=== PATIENT | female | born 1950 | race African-American/Black ===

== ENCOUNTER 2020-06-02 13:07 | Inpatient (IN) | payer MEDICARE, MEDICAID ==
[~2020-06-02] VITALS: Ht 165.1 cm; Wt 75.7 kg
[~2020-06-02 13:07] MED LIST: ACET-3161 GT; AMLO10TA80 PO; CARV3.1242 PO; CLON0.3T PO; HYDR-2510 PO; LEVO25TA7 PO; METF-414 PO; POTA10TA20 PO; SIMV-43 PO; VALS320T2 PO
[2020-06-02] MEDS ORDERED: LORAZEPAM 2MG/ML CPJ IV ONE (14:15)
[2020-06-02 14:21] LABS: EOSINOPHILS % 6.3 % (0.0-5.0); HEMATOCRIT. 40.5 % (36.0-48.0); HEMOGLOBIN. 13.5 g/dL (12.0-16.0); MEAN CORPUSCULAR HEMOGLOBIN 27.8 pg (28.0-32.0); MEAN CORPUSCULAR VOLUME 83.3 fL (81.0-99.0); MEAN PLATELET VOLUME 8.8 fl (7.4-10.4); MONOCYTES % 7.4 % (2.0-8.0); NEUTROPHILS % 44.3 % (40.0-76.0); PLATELET 182 x1000/uL (130-400); RED BLOOD CELL COUNT 4.87 mill/uL (4.2-5.4); RED CELL DISTRIBUTION WIDTH 13.9 % (11.6-14.6)
[2020-06-02 14:26] LABS: CHLORIDE 105 mEq/L (98-107)
[2020-06-02 14:32] LABS: ETHANOL BLOOD < 10 mg/dL
[2020-06-02 14:35] LABS: CREATINE KINASE 179 IU/L (26-192)
[2020-06-02] MEDS ORDERED: DEXAMETHASONE 4MG/ML 1ML VIAL IV SCH (14:45)
[2020-06-02 15:44] LABS: CLARITY URINE CLEAR (CLEAR); COLOR URINE YELLOW (YELLOW); KETONES URINE NEGATIVE (NEGATIVE); LEUKOCYTE ESTERASE URINE NEGATIVE (NEGATIVE); NITRITE URINE NEGATIVE (NEGATIVE); OCCULT BLOOD URINE NEGATIVE (NEGATIVE); PROTEIN URINE TRACE (NEGATIVE); SPECIFIC GRAVITY URINE 1.016 (1.005-1.030); UROBILINOGEN URINE 0.2 E.U./dL (0.2-1.0)
[2020-06-02] MEDS ORDERED: DEXTROSE 50% WATER 50ML SYRINGE IV PRN (15:45)
[2020-06-02 15:56] LABS: *AMPHETAMINES SCREEN URINE NEGATIVE (NEGATIVE); *BARBITURATES SCREEN URINE NEGATIVE (NEGATIVE); *BENZODIAZEPINES SCREEN URINE NEGATIVE (NEGATIVE); *COCAINE SCREEN URINE NEGATIVE (NEGATIVE)
[2020-06-02 15:57] LABS: CANNABINOID URINE SCREEN NEGATIVE (NEGATIVE); METHADONE URINE SCREEN NEGATIVE (NEGATIVE); OPIATES URINE SCREEN NEGATIVE (NEGATIVE); PHENCYCLIDINE URINE SCREEN NEGATIVE (NEGATIVE)
[2020-06-02 16:14] LABS: BG BASE EXCESS -6.3 mmol/L (-2.0-2.0); BG CARBOXYHEMOGLOBIN 0.4 % (0.5-1.5); BG DEOXYHEMOGLOBIN 0.5 % (0.0-5.0); BG METHEMOGLOBIN 0.5 % (0.0-1.5); BG OXYGEN SATURATION 99.5 % (92.0-98.5); BG OXYHEMOGLOBIN 98.6 % (94.0-97.0); BG PCO2 129.7 mmHg (35.0-45.0); BG PH 6.967 (7.350-7.450); BG PO2 412.7 mmHg (75.0-100.0); BG SAMPLE SITE RIGHT RADIAL; BG TOTAL HEMOGLOBIN 14.1 g/dL (12.0-18.0); BG VENT MODE MASK - NRB
[2020-06-02] MEDS: DEXT 5%/LACTATED RINGERS 1,000 ML IV SCH (16:22)
[2020-06-02] MEDS ORDERED: FENTANYL CITRATE/PF 50MCG/ML 2ML VIAL IV ONE (16:45)
[2020-06-02] MEDS ORDERED: SUCCINYLCHOLINE CHLORIDE 200MG/10ML IV ONE ×2 (16:45)
[2020-06-02] MEDS ORDERED: ETOMIDATE 2MG/ML 10ML VIAL IV ONE ×2 (16:45)
[2020-06-02] MEDS ORDERED: POTASSIUM CHLORIDE INJ 40 MEQ in DEXT 5% WATER 250 ML IV NR (17:00)
[2020-06-02] MEDS ORDERED: FENTANYL CITRATE/PF 500 MCG in SODIUM CHLORIDE 0.9% 40 ML IV PRN (17:00)
[2020-06-02] MEDS ORDERED: BLOOD SUGAR DIAGNOSTIC STRIP TEST SCH (17:00)
[2020-06-02] MEDS ORDERED: FENTANYL CITRATE/PF 1,000 MCG in SODIUM CHLORIDE 0.9% 100 ML IV PRN (17:15)
[2020-06-02 17:32] LABS: BG BASE EXCESS -3.7 mmol/L (-2.0-2.0); BG CARBOXYHEMOGLOBIN 0.3 % (0.5-1.5); BG DEOXYHEMOGLOBIN 3.1 % (0.0-5.0); BG FRACTION INSPIRED OXYGEN 50; BG HCO3 ACT 23.6 mmol/L (22.0-26.0); BG METHEMOGLOBIN 0.3 % (0.0-1.5); BG OXYGEN SATURATION 96.9 % (92.0-98.5); BG OXYHEMOGLOBIN 96.3 % (94.0-97.0); BG PCO2 51.8 mmHg (35.0-45.0); BG PH 7.277 (7.350-7.450); BG PO2 100.1 mmHg (75.0-100.0); BG SAMPLE SITE RIGHT BRACHIAL; BG TOTAL HEMOGLOBIN 13.6 g/dL (12.0-18.0); BG TOTAL RESPIRATORY RATE 20 b/min; BG VENT MODE VENT - AC
[2020-06-02] MEDS ORDERED: PROPOFOL 10MG/ML 100ML 100 ML IV SCH (17:45)
[2020-06-02] MEDS ORDERED: LEVETIRACETAM 500 MG in SODIUM CHLORIDE 0.9% 100 ML IV SCH (18:00)
[2020-06-02] MEDS ORDERED: LEVETIRACETAM 500MG PREMIX 100 ML IV SCH (18:00)
[2020-06-02] MEDS: INSULIN LISPRO 100 UNITS/ML SUBCUT SCH (18:16)
[2020-06-02] MEDS: IPRATROPIUM/ALBUTEROL 0.5-3(2.5)MG/3ML NEB HHN SCH (22:15)
[2020-06-03] VITALS (83 sets, daily range): BP systolic 94–181; BP diastolic 24–105
[2020-06-03] MEDS ORDERED: DEXAMETHASONE 4MG/ML 1ML VIAL IV SCH
[2020-06-03] MEDS: IPRATROPIUM/ALBUTEROL 0.5-3(2.5)MG/3ML NEB HHN SCH ×3 (02:06→21:39)
[2020-06-03] MEDS: NICARDIPINE 100 MG in SODIUM CHLORIDE 0.9% 60 ML IV PRN ×2 (02:30→11:38)
[2020-06-03] MEDS: PROPOFOL 10MG/ML 100ML 100 ML IV PRN ×4 (04:10→22:41)
[2020-06-03] MEDS: FENTANYL CITRATE/PF 1,000 MCG in SODIUM CHLORIDE 0.9% 80 ML IV PRN ×3 (04:20→16:40)
[2020-06-03] MEDS: BLOOD SUGAR DIAGNOSTIC STRIP TEST SCH ×4 (05:43→20:18)
[2020-06-03] MEDS: DEXAMETHASONE 4MG/ML 1ML VIAL IV SCH ×3 (05:50→19:19)
[2020-06-03 05:51] LABS: CHLORIDE 101 mEq/L (98-107)
[2020-06-03] MEDS: INSULIN LISPRO 100 UNITS/ML SUBCUT SCH ×4 (05:51→20:19)
[2020-06-03 05:54] LABS: BASOPHILS % 0.1 % (0.0-2.0); HEMATOCRIT. 41.5 % (36.0-48.0); HEMOGLOBIN. 13.8 g/dL (12.0-16.0); LYMPHOCYTES % 8.9 % (20.0-50.0); MEAN CORPUSCULAR HEMOGLOBIN 27.7 pg (28.0-32.0); MEAN CORPUSCULAR VOLUME 83.3 fL (81.0-99.0); MEAN PLATELET VOLUME 8.1 fl (7.4-10.4); MONOCYTES % 5.2 % (2.0-8.0); NEUTROPHILS % 85.8 % (40.0-76.0); PLATELET 189 x1000/uL (130-400); RED BLOOD CELL COUNT 4.98 mill/uL (4.2-5.4); RED CELL DISTRIBUTION WIDTH 13.8 % (11.6-14.6)
[2020-06-03] MEDS: LEVETIRACETAM 500MG PREMIX 100 ML IV SCH ×2 (08:17→20:19)
[2020-06-03] MEDS: PANTOPRAZOLE SODIUM 40 MG/VIAL IV SCH (08:25)
[2020-06-03 08:52] LABS: BG BASE EXCESS 2.6 mmol/L (-2.0-2.0); BG CARBOXYHEMOGLOBIN 0.3 % (0.5-1.5); BG FRACTION INSPIRED OXYGEN 50; BG HCO3 ACT 25.7 mmol/L (22.0-26.0); BG METHEMOGLOBIN 0.3 % (0.0-1.5); BG OXYHEMOGLOBIN 97.4 % (94.0-97.0); BG PH 7.484 (7.350-7.450); BG PO2 99.3 mmHg (75.0-100.0); BG SAMPLE SITE RIGHT RADIAL; BG TOTAL HEMOGLOBIN 13.6 g/dL (12.0-18.0); BG VENT MODE VENT - AC
[2020-06-03] MEDS ORDERED: GADOBENATE DIMEGLUMINE 529 MG/ML 10ML IV ONE (10:30)
[2020-06-03] MEDS ORDERED: BACITRACIN 15GM TUBE TOP ONE (10:48)
[2020-06-03] MEDS ORDERED: THROMBIN (BOVINE) 5000 UNITS/VIAL TOP ONE ×3 (10:49→13:01)
[2020-06-03] MEDS ORDERED: BACITRACIN 50,000 UNITS/VIAL ONE (10:49)
[2020-06-03] MEDS ORDERED: SODIUM CHLORIDE 0.9% INJ 10ML FLUSH ONE (10:49)
[2020-06-03] MEDS ORDERED: POTASSIUM CHLORIDE INJ 40 MEQ in DEXT 5% WATER 250 ML IV SCH (12:00)
[2020-06-03] MEDS ORDERED: PROPOFOL 200MG/20ML VIAL IV ONE ×2 (12:00→12:43)
[2020-06-03] MEDS ORDERED: FENTANYL CITRATE/PF 50MCG/ML 2ML VIAL ONE ×2 (12:00→12:48)
[2020-06-03] MEDS ORDERED: MIDAZOLAM HCL 2 MG/2 ML VIAL ONE (12:00)
[2020-06-03] MEDS ORDERED: ONDANSETRON HCL 4MG/2ML INJ ONE (12:07)
[2020-06-03] MEDS ORDERED: DEXAMETHASONE 4MG/ML 1ML VIAL ONE (12:07)
[2020-06-03] MEDS ORDERED: MANNITOL 20% 500 ML IV ONE (12:14)
[2020-06-03] MEDS ORDERED: HYDROMORPHONE HCL/PF 2MG/ML (OR) ONE ×2 (13:47→14:12)
[2020-06-03] MEDS ORDERED: GLYCOPYRROLATE 0.2 MG/ML 2ML VIAL ONE (13:48)
[2020-06-03] MEDS: MORPHINE SULFATE 4 MG/ML CPJ (NOT FOR IM USE) IV PRN (15:21)
[2020-06-03] MEDS: DEXT 5%/LACTATED RINGERS 1,000 ML IV SCH (16:01)
[2020-06-03] MEDS: PIPERACILLIN/TAZOBACTAM 3.375 G in DEXT 5% WATER 100 ML IV SCH ×2 (16:08→20:18)
[2020-06-03] MEDS: CEFAZOLIN 1000MG PREMIX 50 ML IV SCH (20:18)
[2020-06-03 21:15] LABS: PROTHROMBIN TIME 10.7 sec (9.6-11.0)
[2020-06-03] MEDS ORDERED: CEFAZOLIN SODIUM 1000MG/VIAL IV SCH (22:00)
[2020-06-03] MEDS: NITROPRUSSIDE 50 MG in SODIUM CHLORIDE 0.9% 248 ML IV PRN (22:40)
[2020-06-04] VITALS (93 sets, daily range): BP systolic 44–186; BP diastolic 31–153
[2020-06-04] MEDS: DEXAMETHASONE 4MG/ML 1ML VIAL IV SCH ×5 (00:21→23:51)
[2020-06-04] MEDS: FENTANYL CITRATE/PF 1,000 MCG in SODIUM CHLORIDE 0.9% 80 ML IV PRN ×3 (00:25→16:24)
[2020-06-04] MEDS: PIPERACILLIN/TAZOBACTAM 3.375 G in DEXT 5% WATER 100 ML IV SCH ×4 (02:02→19:51)
[2020-06-04] MEDS: IPRATROPIUM/ALBUTEROL 0.5-3(2.5)MG/3ML NEB HHN SCH (02:21)
[2020-06-04] MEDS: CEFAZOLIN 1000MG PREMIX 50 ML IV SCH ×3 (03:03→19:51)
[2020-06-04] MEDS ORDERED: ADENOSINE 3 MG/ML 2ML VIAL IV NR ×2 (04:15→04:30)
[2020-06-04] MEDS ORDERED: AMIODARONE HCL 150 MG in DEXT 5% WATER 100 ML IV NR (05:30)
[2020-06-04] MEDS: BLOOD SUGAR DIAGNOSTIC STRIP TEST SCH ×4 (05:36→21:11)
[2020-06-04] MEDS: PROPOFOL 10MG/ML 100ML 100 ML IV PRN ×3 (05:37→22:49)
[2020-06-04] MEDS: INSULIN LISPRO 100 UNITS/ML SUBCUT SCH ×4 (05:47→21:09)
[2020-06-04 05:49] LABS: HEMATOCRIT. 35.8 % (36.0-48.0); MEAN CORPUSCULAR HEMOGLOBIN 27.5 pg (28.0-32.0); MEAN PLATELET VOLUME 8.4 fl (7.4-10.4); PLATELET 226 x1000/uL (130-400); RED BLOOD CELL COUNT 4.37 mill/uL (4.2-5.4); RED CELL DISTRIBUTION WIDTH 14.1 % (11.6-14.6)
[2020-06-04] MEDS: AMIODARONE HCL 900 MG in DEXT 5% WATER 482 ML IV PRN (06:00)
[2020-06-04 06:02] LABS: PHOSPHORUS 3.7 mg/dL (2.5-4.9)
[2020-06-04] MEDS: NITROPRUSSIDE 50 MG in SODIUM CHLORIDE 0.9% 248 ML IV PRN ×2 (07:30→22:43)
[2020-06-04 07:47] LABS: BG BASE EXCESS -2.8 mmol/L (-2.0-2.0); BG CARBOXYHEMOGLOBIN 0.3 % (0.5-1.5); BG DEOXYHEMOGLOBIN 1.6 % (0.0-5.0); BG HCO3 ACT 21.3 mmol/L (22.0-26.0); BG METHEMOGLOBIN 0.3 % (0.0-1.5); BG OXYGEN SATURATION 98.4 % (92.0-98.5); BG OXYHEMOGLOBIN 97.8 % (94.0-97.0); BG PCO2 34.9 mmHg (35.0-45.0); BG PH 7.403 (7.350-7.450); BG PO2 134.1 mmHg (75.0-100.0); BG SAMPLE SITE ALINE; BG TOTAL HEMOGLOBIN 12.8 g/dL (12.0-18.0); BG VENT MODE VENT - AC
[2020-06-04] MEDS: DEXT 5%/LACTATED RINGERS 1,000 ML IV SCH (07:57)
[2020-06-04] MEDS: LEVETIRACETAM 500MG PREMIX 100 ML IV SCH ×2 (09:01→21:08)
[2020-06-04] MEDS: PANTOPRAZOLE SODIUM 40 MG/VIAL IV SCH (09:01)
[2020-06-04] MEDS: IPRATROPIUM BROMIDE (0.02%) 0.5MG/2.5ML NEB HHN SCH ×3 (09:15→20:05)
[2020-06-04] MEDS ORDERED: IPRATROPIUM BROMIDE (0.02%) 0.5MG/2.5ML NEB ONE (09:23)
[2020-06-04] MEDS ORDERED: KCL 20MEQ/100ML PREMIX 100 ML IV SCH (10:00)
[2020-06-04] MEDS ORDERED: DILTIAZEM HCL 5MG/ML 5ML VIAL IV SCH (10:00)
[2020-06-04] MEDS: LACTATED RINGERS 1,000 ML IV SCH (11:43)
[2020-06-04] MEDS ORDERED: INSULIN GLARGINE UD 100 UNITS/ML SYR SUBCUT NR (12:30)
[2020-06-04 17:38] LABS: PLATELET ESTIMATE NORMAL
[2020-06-04] MEDS: INSULIN GLARGINE UD 100 UNITS/ML SYR SUBCUT SCH (21:11)
[2020-06-05] VITALS (96 sets, daily range): BP systolic 102–148; BP diastolic 53–86
[2020-06-05] MEDS: FENTANYL CITRATE/PF 1,000 MCG in SODIUM CHLORIDE 0.9% 80 ML IV PRN ×4 (00:39→21:03)
[2020-06-05] MEDS: IPRATROPIUM BROMIDE (0.02%) 0.5MG/2.5ML NEB HHN SCH ×4 (01:49→20:23)
[2020-06-05] MEDS: PIPERACILLIN/TAZOBACTAM 3.375 G in DEXT 5% WATER 100 ML IV SCH ×4 (02:35→19:54)
[2020-06-05] MEDS: CEFAZOLIN 1000MG PREMIX 50 ML IV SCH ×2 (03:26→12:32)
[2020-06-05] MEDS: NITROPRUSSIDE 50 MG in SODIUM CHLORIDE 0.9% 248 ML IV PRN ×2 (04:55→12:52)
[2020-06-05] MEDS: LACTATED RINGERS 1,000 ML IV SCH ×2 (04:55→23:04)
[2020-06-05] MEDS: AMIODARONE HCL 900 MG in DEXT 5% WATER 482 ML IV PRN (04:56)
[2020-06-05 05:43] LABS: CHLORIDE 104 mEq/L (98-107)
[2020-06-05] MEDS: INSULIN LISPRO 100 UNITS/ML SUBCUT SCH ×4 (05:49→20:55)
[2020-06-05] MEDS: DEXAMETHASONE 4MG/ML 1ML VIAL IV SCH ×4 (05:49→23:39)
[2020-06-05] MEDS: BLOOD SUGAR DIAGNOSTIC STRIP TEST SCH ×4 (05:49→20:54)
[2020-06-05 05:56] LABS: HEMATOCRIT. 35.3 % (36.0-48.0); HEMOGLOBIN. 11.7 g/dL (12.0-16.0); MEAN CORPUSCULAR HEMOGLOBIN 27.4 pg (28.0-32.0); MEAN CORPUSCULAR VOLUME 82.6 fL (81.0-99.0); MEAN PLATELET VOLUME 8.4 fl (7.4-10.4); PLATELET 205 x1000/uL (130-400); RED BLOOD CELL COUNT 4.28 mill/uL (4.2-5.4)
[2020-06-05 07:52] LABS: PLATELET ESTIMATE NORMAL
[2020-06-05] MEDS: PROPOFOL 10MG/ML 100ML 100 ML IV PRN ×4 (08:00→22:24)
[2020-06-05] MEDS: PANTOPRAZOLE SODIUM 40 MG/VIAL IV SCH (08:17)
[2020-06-05] MEDS: LEVETIRACETAM 500MG PREMIX 100 ML IV SCH (08:18)
[2020-06-05] MEDS ORDERED: DILTIAZEM HCL 30MG TABLET NG SCH (10:00)
[2020-06-05] MEDS: INSULIN GLARGINE UD 100 UNITS/ML SYR SUBCUT SCH ×2 (10:29→21:02)
[2020-06-05 10:33] LABS: BG BASE EXCESS 0.5 mmol/L (-2.0-2.0); BG DEOXYHEMOGLOBIN 3.2 % (0.0-5.0); BG HCO3 ACT 23.5 mmol/L (22.0-26.0); BG METHEMOGLOBIN 0.3 % (0.0-1.5); BG OXYGEN SATURATION 96.8 % (92.0-98.5); BG OXYHEMOGLOBIN 96.5 % (94.0-97.0); BG PCO2 32.4 mmHg (35.0-45.0); BG PH 7.479 (7.350-7.450); BG PO2 85.2 mmHg (75.0-100.0); BG SAMPLE SITE RIGHT RADIAL; BG TOTAL HEMOGLOBIN 11.2 g/dL (12.0-18.0); BG TOTAL RESPIRATORY RATE 26 b/min; BG VENT MODE VENT - AC
[2020-06-05] MEDS ORDERED: LEVETIRACETAM 500 MG in SODIUM CHLORIDE 0.9% 100 ML IV SCH (11:45)
[2020-06-05] MEDS ORDERED: LEVETIRACETAM 500MG PREMIX 100 ML IV SCH (13:00)
[2020-06-05] MEDS ORDERED: LIDOCAINE HCL 1% 20ML VIAL (Pyxis) INJ ONE (14:16)
[2020-06-05] MEDS ORDERED: NON FORMULARY PATIENT HOME MED XX SCH (15:00)
[2020-06-05] MEDS: MORPHINE SULFATE 4 MG/ML CPJ (NOT FOR IM USE) IV PRN (15:23)
[2020-06-05] MEDS: DILTIAZEM HCL 30MG TABLET NG SCH ×2 (16:19→21:01)
[2020-06-05] MEDS ORDERED: FOSPHENYTOIN SODIUM IV SCH ×2 (17:00→21:00)
[2020-06-05] MEDS ORDERED: SODIUM CHLORIDE 0.9% IV SCH ×2 (17:00→21:00)
[2020-06-05] MEDS: LEVETIRACETAM 1,000 MG in SODIUM CHLORIDE 0.9% 100 ML IV SCH (20:28)
[2020-06-06] VITALS (94 sets, daily range): BP systolic 110–144; BP diastolic 57–85
[2020-06-06] MEDS: SODIUM CHLORIDE 0.9% IV SCH ×3 (02:01→18:00)
[2020-06-06] MEDS: FOSPHENYTOIN SODIUM IV SCH ×3 (02:01→18:00)
[2020-06-06] MEDS: PROPOFOL 10MG/ML 100ML 100 ML IV PRN ×6 (02:37→22:11)
[2020-06-06] MEDS: PIPERACILLIN/TAZOBACTAM 3.375 G in DEXT 5% WATER 100 ML IV SCH ×4 (02:37→20:43)
[2020-06-06] MEDS: IPRATROPIUM BROMIDE (0.02%) 0.5MG/2.5ML NEB HHN SCH ×4 (02:43→20:27)
[2020-06-06] MEDS: FENTANYL CITRATE/PF 1,000 MCG in SODIUM CHLORIDE 0.9% 80 ML IV PRN ×4 (02:51→18:42)
[2020-06-06] MEDS: DILTIAZEM HCL 30MG TABLET NG SCH ×2 (03:00→10:24)
[2020-06-06] MEDS: DEXAMETHASONE 4MG/ML 1ML VIAL IV SCH ×4 (05:29→23:01)
[2020-06-06] MEDS: BLOOD SUGAR DIAGNOSTIC STRIP TEST SCH ×4 (05:33→23:00)
[2020-06-06 05:43] LABS: CHLORIDE 109 mEq/L (98-107)
[2020-06-06 05:48] LABS: HEMATOCRIT. 32.9 % (36.0-48.0); MEAN CORPUSCULAR HEMOGLOBIN 27.7 pg (28.0-32.0); MEAN CORPUSCULAR VOLUME 82.9 fL (81.0-99.0); MEAN PLATELET VOLUME 8.9 fl (7.4-10.4); PLATELET 161 x1000/uL (130-400); RED BLOOD CELL COUNT 3.97 mill/uL (4.2-5.4); RED CELL DISTRIBUTION WIDTH 14.3 % (11.6-14.6)
[2020-06-06] MEDS: INSULIN LISPRO 100 UNITS/ML SUBCUT SCH ×4 (06:08→23:01)
[2020-06-06] MEDS ORDERED: LORAZEPAM 2MG/ML CPJ IV NR (07:15)
[2020-06-06] MEDS ORDERED: SODIUM CHLORIDE 0.9% IV SCH (07:30)
[2020-06-06] MEDS ORDERED: FOSPHENYTOIN SODIUM IV SCH (07:30)
[2020-06-06 07:34] LABS: PLATELET ESTIMATE NORMAL
[2020-06-06] MEDS: LEVETIRACETAM 1,000 MG in SODIUM CHLORIDE 0.9% 100 ML IV SCH ×2 (09:27→21:48)
[2020-06-06] MEDS: PANTOPRAZOLE SODIUM 40 MG/VIAL IV SCH (09:27)
[2020-06-06 10:04] LABS: BG BASE EXCESS 1.2 mmol/L (-2.0-2.0); BG CARBOXYHEMOGLOBIN 0.3 % (0.5-1.5); BG DEOXYHEMOGLOBIN 1.6 % (0.0-5.0); BG FRACTION INSPIRED OXYGEN 50; BG HCO3 ACT 25.3 mmol/L (22.0-26.0); BG METHEMOGLOBIN 0.1 % (0.0-1.5); BG OXYGEN SATURATION 98.4 % (92.0-98.5); BG PCO2 38.4 mmHg (35.0-45.0); BG PH 7.437 (7.350-7.450); BG PO2 137.5 mmHg (75.0-100.0); BG SAMPLE SITE RIGHT RADIAL; BG TOTAL HEMOGLOBIN 11.9 g/dL (12.0-18.0); BG TOTAL RESPIRATORY RATE 19 b/min; BG VENT MODE VENT - AC
[2020-06-06] MEDS ORDERED: HYDRALAZINE HCL 50MG TABLET PO SCH ×2 (10:15→21:00)
[2020-06-06 10:52] LABS: BG FRACTION INSPIRED OXYGEN 50
[2020-06-06] MEDS: HYDRALAZINE HCL 50MG TABLET PO SCH ×2 (13:24→21:49)
[2020-06-06] MEDS: LACTATED RINGERS 1,000 ML IV SCH (15:55)
[2020-06-06] MEDS: DILTIAZEM HCL 60MG TABLET NG SCH ×2 (15:55→21:49)
[2020-06-06] MEDS: ZONISAMIDE 100MG CAPSULE PO SCH (18:00)
[2020-06-06] MEDS: INSULIN GLARGINE UD 100 UNITS/ML SYR SUBCUT SCH (22:53)
[2020-06-07] VITALS (93 sets, daily range): BP systolic 109–142; BP diastolic 55–79
[2020-06-07] MEDS: FOSPHENYTOIN SODIUM IV SCH ×3 (00:18→17:44)
[2020-06-07] MEDS: SODIUM CHLORIDE 0.9% IV SCH ×3 (00:18→17:44)
[2020-06-07] MEDS: FENTANYL CITRATE/PF 1,000 MCG in SODIUM CHLORIDE 0.9% 80 ML IV PRN ×3 (00:18→15:18)
[2020-06-07] MEDS: PROPOFOL 10MG/ML 100ML 100 ML IV PRN ×5 (01:31→18:56)
[2020-06-07] MEDS: PIPERACILLIN/TAZOBACTAM 3.375 G in DEXT 5% WATER 100 ML IV SCH ×4 (01:31→20:06)
[2020-06-07] MEDS: IPRATROPIUM BROMIDE (0.02%) 0.5MG/2.5ML NEB HHN SCH ×4 (02:24→20:45)
[2020-06-07] MEDS: DILTIAZEM HCL 60MG TABLET NG SCH ×4 (03:34→21:14)
[2020-06-07] MEDS: BLOOD SUGAR DIAGNOSTIC STRIP TEST SCH ×4 (05:14→23:02)
[2020-06-07 05:20] LABS: BASOPHILS % 0.1 % (0.0-2.0); HEMATOCRIT. 35.2 % (36.0-48.0); HEMOGLOBIN. 11.7 g/dL (12.0-16.0); LYMPHOCYTES % 8.9 % (20.0-50.0); MEAN CORPUSCULAR HEMOGLOBIN 27.6 pg (28.0-32.0); MEAN PLATELET VOLUME 7.7 fl (7.4-10.4); MONOCYTES % 5.3 % (2.0-8.0); NEUTROPHILS % 85.7 % (40.0-76.0); PLATELET 197 x1000/uL (130-400); RED BLOOD CELL COUNT 4.24 mill/uL (4.2-5.4); RED CELL DISTRIBUTION WIDTH 14.4 % (11.6-14.6)
[2020-06-07 05:31] LABS: CHLORIDE 110 mEq/L (98-107)
[2020-06-07] MEDS: INSULIN LISPRO 100 UNITS/ML SUBCUT SCH ×4 (05:52→23:02)
[2020-06-07] MEDS: LACTATED RINGERS 1,000 ML IV SCH ×2 (05:54→21:15)
[2020-06-07] MEDS: HYDRALAZINE HCL 50MG TABLET PO SCH ×3 (05:59→21:14)
[2020-06-07] MEDS: DEXAMETHASONE 4MG/ML 1ML VIAL IV SCH ×4 (05:59→23:05)
[2020-06-07 08:37] LABS: BG BASE EXCESS 0.6 mmol/L (-2.0-2.0); BG CARBOXYHEMOGLOBIN 0.3 % (0.5-1.5); BG DEOXYHEMOGLOBIN 4.1 % (0.0-5.0); BG HCO3 ACT 25.7 mmol/L (22.0-26.0); BG METHEMOGLOBIN 0.3 % (0.0-1.5); BG OXYGEN SATURATION 95.9 % (92.0-98.5); BG OXYHEMOGLOBIN 95.3 % (94.0-97.0); BG PH 7.394 (7.350-7.450); BG PO2 81.4 mmHg (75.0-100.0); BG SAMPLE SITE RIGHT RADIAL; BG TOTAL HEMOGLOBIN 12.1 g/dL (12.0-18.0); BG VENT MODE VENT - AC
[2020-06-07] MEDS: PANTOPRAZOLE SODIUM 40 MG/VIAL IV SCH (08:41)
[2020-06-07] MEDS: ZONISAMIDE 100MG CAPSULE PO SCH (08:41)
[2020-06-07] MEDS: LEVETIRACETAM 1,000 MG in SODIUM CHLORIDE 0.9% 100 ML IV SCH (08:41)
[2020-06-07] MEDS: INSULIN GLARGINE UD 100 UNITS/ML SYR SUBCUT SCH ×2 (10:07→23:05)
[2020-06-07] MEDS: LEVETIRACETAM 1,500 MG in SODIUM CHLORIDE 0.9% 100 ML IV SCH (21:14)
[2020-06-08] VITALS (98 sets, daily range): BP systolic 118–189; BP diastolic 55–80
[2020-06-08] MEDS: FOSPHENYTOIN SODIUM IV SCH ×3 (00:56→18:39)
[2020-06-08] MEDS: SODIUM CHLORIDE 0.9% IV SCH ×3 (00:56→18:39)
[2020-06-08] MEDS: IPRATROPIUM BROMIDE (0.02%) 0.5MG/2.5ML NEB HHN SCH ×4 (01:58→20:31)
[2020-06-08] MEDS: PIPERACILLIN/TAZOBACTAM 3.375 G in DEXT 5% WATER 100 ML IV SCH ×2 (02:14→08:56)
[2020-06-08] MEDS: DILTIAZEM HCL 60MG TABLET NG SCH ×4 (02:15→20:04)
[2020-06-08] MEDS: PROPOFOL 10MG/ML 100ML 100 ML IV PRN (02:18)
[2020-06-08] MEDS: FENTANYL CITRATE/PF 1,000 MCG in SODIUM CHLORIDE 0.9% 80 ML IV PRN ×3 (02:29→20:37)
[2020-06-08] MEDS: BLOOD SUGAR DIAGNOSTIC STRIP TEST SCH ×4 (05:11→23:58)
[2020-06-08] MEDS: INSULIN LISPRO 100 UNITS/ML SUBCUT SCH ×4 (05:11→23:58)
[2020-06-08] MEDS: HYDRALAZINE HCL 50MG TABLET PO SCH ×3 (05:26→20:05)
[2020-06-08] MEDS: DEXAMETHASONE 4MG/ML 1ML VIAL IV SCH ×4 (05:26→23:59)
[2020-06-08 05:56] LABS: HEMATOCRIT. 36.2 % (36.0-48.0); HEMOGLOBIN. 12.1 g/dL (12.0-16.0); MEAN CORPUSCULAR HEMOGLOBIN 27.8 pg (28.0-32.0); MEAN CORPUSCULAR VOLUME 83.1 fL (81.0-99.0); MEAN PLATELET VOLUME 7.7 fl (7.4-10.4); PLATELET 234 x1000/uL (130-400); RED BLOOD CELL COUNT 4.36 mill/uL (4.2-5.4); RED CELL DISTRIBUTION WIDTH 14.1 % (11.6-14.6)
[2020-06-08 06:05] LABS: CHLORIDE 107 mEq/L (98-107)
[2020-06-08] MEDS: MORPHINE SULFATE 4 MG/ML CPJ (NOT FOR IM USE) IV PRN (08:11)
[2020-06-08] MEDS: PANTOPRAZOLE SODIUM 40 MG/VIAL IV SCH (08:30)
[2020-06-08] MEDS: LEVETIRACETAM 1,500 MG in SODIUM CHLORIDE 0.9% 100 ML IV SCH ×2 (08:56→20:41)
[2020-06-08] MEDS: ZONISAMIDE 100MG CAPSULE PO SCH (08:56)
[2020-06-08 09:58] LABS: BG BASE EXCESS -1.4 mmol/L (-2.0-2.0); BG CARBOXYHEMOGLOBIN 0.8 % (0.5-1.5); BG DEOXYHEMOGLOBIN 3.7 % (0.0-5.0); BG FRACTION INSPIRED OXYGEN 50; BG HCO3 ACT 23.7 mmol/L (22.0-26.0); BG METHEMOGLOBIN 0.3 % (0.0-1.5); BG OXYGEN SATURATION 96.3 % (92.0-98.5); BG OXYHEMOGLOBIN 95.2 % (94.0-97.0); BG PCO2 41.2 mmHg (35.0-45.0); BG PH 7.378 (7.350-7.450); BG PO2 81.3 mmHg (75.0-100.0); BG SAMPLE SITE RIGHT RADIAL; BG TOTAL HEMOGLOBIN 13.1 g/dL (12.0-18.0); BG VENT MODE VENT - AC
[2020-06-08] MEDS: INSULIN GLARGINE UD 100 UNITS/ML SYR SUBCUT SCH ×2 (10:12→22:15)
[2020-06-08 11:02] LABS: NUCLEATED RED BLOOD CELLS 1 /100 WBC
[2020-06-08 11:03] LABS: PLATELET ESTIMATE NORMAL
[2020-06-08] MEDS: LACTATED RINGERS 1,000 ML IV SCH ×2 (18:53→20:29)
[2020-06-08] MEDS: MORPHINE SULFATE 2 MG/ML CPJ (NOT FOR IM USE) IV PRN (20:05)
[2020-06-08] MEDS: NITROPRUSSIDE 50 MG in SODIUM CHLORIDE 0.9% 248 ML IV PRN (21:11)
[2020-06-09] VITALS (92 sets, daily range): BP systolic 104–149; BP diastolic 54–80
[2020-06-09] MEDS: FOSPHENYTOIN SODIUM IV SCH ×4 (01:18→23:54)
[2020-06-09] MEDS: SODIUM CHLORIDE 0.9% IV SCH ×4 (01:18→23:54)
[2020-06-09] MEDS: IPRATROPIUM BROMIDE (0.02%) 0.5MG/2.5ML NEB HHN SCH ×4 (01:53→19:52)
[2020-06-09] MEDS: DILTIAZEM HCL 60MG TABLET NG SCH ×4 (03:59→21:31)
[2020-06-09 05:09] LABS: HEMATOCRIT. 35.1 % (36.0-48.0); HEMOGLOBIN. 11.6 g/dL (12.0-16.0); MEAN CORPUSCULAR HEMOGLOBIN 27.3 pg (28.0-32.0); MEAN CORPUSCULAR VOLUME 82.6 fL (81.0-99.0); MEAN PLATELET VOLUME 7.5 fl (7.4-10.4); PLATELET 247 x1000/uL (130-400); RED BLOOD CELL COUNT 4.25 mill/uL (4.2-5.4); RED CELL DISTRIBUTION WIDTH 14.2 % (11.6-14.6)
[2020-06-09] MEDS: FENTANYL CITRATE/PF 1,000 MCG in SODIUM CHLORIDE 0.9% 80 ML IV PRN ×3 (05:14→22:08)
[2020-06-09 05:15] LABS: CHLORIDE 109 mEq/L (98-107)
[2020-06-09] MEDS: INSULIN LISPRO 100 UNITS/ML SUBCUT SCH ×4 (05:34→23:55)
[2020-06-09] MEDS: BLOOD SUGAR DIAGNOSTIC STRIP TEST SCH ×4 (05:34→23:54)
[2020-06-09] MEDS: DEXAMETHASONE 4MG/ML 1ML VIAL IV SCH ×4 (06:12→23:54)
[2020-06-09] MEDS: HYDRALAZINE HCL 50MG TABLET PO SCH (06:12)
[2020-06-09] MEDS: PANTOPRAZOLE SODIUM 40 MG/VIAL IV SCH (09:00)
[2020-06-09] MEDS: ZONISAMIDE 100MG CAPSULE PO SCH (09:01)
[2020-06-09] MEDS: LEVETIRACETAM 1,500 MG in SODIUM CHLORIDE 0.9% 100 ML IV SCH ×2 (09:01→21:30)
[2020-06-09 09:27] LABS: BG BASE EXCESS 1.8 mmol/L (-2.0-2.0); BG CARBOXYHEMOGLOBIN 0.3 % (0.5-1.5); BG DEOXYHEMOGLOBIN 5.9 % (0.0-5.0); BG FRACTION INSPIRED OXYGEN 50; BG HCO3 ACT 25.5 mmol/L (22.0-26.0); BG METHEMOGLOBIN 0.3 % (0.0-1.5); BG OXYGEN SATURATION 94.1 % (92.0-98.5); BG OXYHEMOGLOBIN 93.5 % (94.0-97.0); BG PCO2 36.5 mmHg (35.0-45.0); BG PH 7.462 (7.350-7.450); BG PO2 67.4 mmHg (75.0-100.0); BG SAMPLE SITE RIGHT RADIAL; BG TOTAL HEMOGLOBIN 11.6 g/dL (12.0-18.0); BG VENT MODE VENT - AC
[2020-06-09 09:35] LABS: PLATELET ESTIMATE NORMAL
[2020-06-09] MEDS ORDERED: POTASSIUM CHLORIDE 20MEQ TABLET SR PO NR (10:15)
[2020-06-09] MEDS ORDERED: POTASSIUM CHLORIDE 20MEQ/PACKET PO NR (11:00)
[2020-06-09] MEDS: INSULIN GLARGINE UD 100 UNITS/ML SYR SUBCUT SCH ×2 (11:06→22:07)
[2020-06-09] MEDS: LOSARTAN POTASSIUM 25 MG TABLET PO SCH ×2 (12:34→21:30)
[2020-06-09] MEDS: HYDRALAZINE HCL 100MG TABLET PO SCH ×2 (13:49→21:30)
[2020-06-09] MEDS: CLONIDINE 0.1MG TABLET PO SCH ×2 (13:49→21:30)
[2020-06-09] MEDS: NITROPRUSSIDE 50 MG in SODIUM CHLORIDE 0.9% 248 ML IV PRN ×2 (13:50→22:07)
[2020-06-09] MEDS: LACTATED RINGERS 1,000 ML IV SCH (15:46)
[2020-06-10] VITALS (80 sets, daily range): BP systolic 102–158; BP diastolic 42–99
[2020-06-10] MEDS: IPRATROPIUM BROMIDE (0.02%) 0.5MG/2.5ML NEB HHN SCH ×4 (01:38→20:40)
[2020-06-10] MEDS: DILTIAZEM HCL 60MG TABLET NG SCH ×4 (03:42→20:08)
[2020-06-10] MEDS: LOSARTAN POTASSIUM 25 MG TABLET PO SCH ×3 (04:51→20:08)
[2020-06-10] MEDS: DEXAMETHASONE 4MG/ML 1ML VIAL IV SCH ×4 (04:51→23:59)
[2020-06-10] MEDS: CLONIDINE 0.1MG TABLET PO SCH (04:51)
[2020-06-10] MEDS: HYDRALAZINE HCL 100MG TABLET PO SCH ×3 (04:51→22:05)
[2020-06-10] MEDS: NITROPRUSSIDE 50 MG in SODIUM CHLORIDE 0.9% 248 ML IV PRN ×4 (05:53→20:21)
[2020-06-10] MEDS: BLOOD SUGAR DIAGNOSTIC STRIP TEST SCH ×3 (06:09→17:17)
[2020-06-10] MEDS: INSULIN LISPRO 100 UNITS/ML SUBCUT SCH ×3 (06:13→17:17)
[2020-06-10] MEDS: FENTANYL CITRATE/PF 1,000 MCG in SODIUM CHLORIDE 0.9% 80 ML IV PRN ×3 (06:19→23:27)
[2020-06-10] MEDS: PANTOPRAZOLE SODIUM 40 MG/VIAL IV SCH (08:52)
[2020-06-10] MEDS: SODIUM CHLORIDE 0.9% IV SCH ×2 (08:52→17:14)
[2020-06-10] MEDS: FOSPHENYTOIN SODIUM IV SCH ×2 (08:52→17:14)
[2020-06-10] MEDS: LEVETIRACETAM 1,500 MG in SODIUM CHLORIDE 0.9% 100 ML IV SCH ×2 (08:52→20:39)
[2020-06-10] MEDS: ZONISAMIDE 100MG CAPSULE PO SCH (08:53)
[2020-06-10] MEDS: LACTATED RINGERS 1,000 ML IV SCH (08:53)
[2020-06-10 09:18] LABS: BG BASE EXCESS -3.3 mmol/L (-2.0-2.0); BG CARBOXYHEMOGLOBIN 0.3 % (0.5-1.5); BG DEOXYHEMOGLOBIN 4.5 % (0.0-5.0); BG FRACTION INSPIRED OXYGEN 50; BG HCO3 ACT 19.4 mmol/L (22.0-26.0); BG OXYGEN SATURATION 95.5 % (92.0-98.5); BG OXYHEMOGLOBIN 95.2 % (94.0-97.0); BG PCO2 27.9 mmHg (35.0-45.0); BG PH 7.461 (7.350-7.450); BG PO2 76.4 mmHg (75.0-100.0); BG SAMPLE SITE RIGHT RADIAL; BG VENT MODE VENT - AC
[2020-06-10] MEDS ORDERED: LACTULOSE 20G/30ML UDC PO NR (10:00)
[2020-06-10] MEDS: INSULIN GLARGINE UD 100 UNITS/ML SYR SUBCUT SCH ×2 (10:16→22:06)
[2020-06-10] MEDS: DOCUSATE SODIUM 250MG CAPSULE PO SCH (11:00)
[2020-06-10] MEDS: MORPHINE SULFATE 2 MG/ML CPJ (NOT FOR IM USE) IV PRN ×3 (11:02→20:40)
[2020-06-10 12:15] LABS: BASOPHILS % 0.3 % (0.0-2.0); EOSINOPHILS % 0.2 % (0.0-5.0); HEMATOCRIT. 31.1 % (36.0-48.0); HEMOGLOBIN. 10.3 g/dL (12.0-16.0); LYMPHOCYTES % 8.6 % (20.0-50.0); MEAN CORPUSCULAR HEMOGLOBIN 27.4 pg (28.0-32.0); MEAN PLATELET VOLUME 7.6 fl (7.4-10.4); MONOCYTES % 8.7 % (2.0-8.0); NEUTROPHILS % 82.2 % (40.0-76.0); PLATELET 174 x1000/uL (130-400); RED BLOOD CELL COUNT 3.75 mill/uL (4.2-5.4); RED CELL DISTRIBUTION WIDTH 14.3 % (11.6-14.6)
[2020-06-10 12:20] LABS: CHLORIDE 113 mEq/L (98-107)
[2020-06-10] MEDS: CLONIDINE 0.2MG TABLET PO SCH ×2 (14:17→22:06)
[2020-06-10] MEDS ORDERED: MORPHINE SULFATE 2 MG/ML CPJ (NOT FOR IM USE) IV ONE (15:39)
[2020-06-10] MEDS ORDERED: NITROPRUSSIDE 100 MG in DEXT 5% WATER 246 ML IV PRN ×4 (23:00)
[2020-06-11] VITALS (103 sets, daily range): BP systolic 81–172; BP diastolic 49–111
[2020-06-11] MEDS: SODIUM CHLORIDE 0.9% IV SCH ×3 (00:05→16:15)
[2020-06-11] MEDS: FOSPHENYTOIN SODIUM IV SCH ×3 (00:05→16:15)
[2020-06-11] MEDS: LACTATED RINGERS 1,000 ML IV SCH ×2 (01:30→22:25)
[2020-06-11] MEDS: IPRATROPIUM BROMIDE (0.02%) 0.5MG/2.5ML NEB HHN SCH ×4 (02:20→20:36)
[2020-06-11] MEDS: DILTIAZEM HCL 60MG TABLET NG SCH ×4 (03:23→20:04)
[2020-06-11] MEDS: LOSARTAN POTASSIUM 25 MG TABLET PO SCH ×3 (04:13→20:04)
[2020-06-11 05:35] LABS: HEMATOCRIT. 29.6 % (36.0-48.0); HEMOGLOBIN. 9.8 g/dL (12.0-16.0); MEAN CORPUSCULAR HEMOGLOBIN 27.8 pg (28.0-32.0); MEAN CORPUSCULAR VOLUME 83.7 fL (81.0-99.0); MEAN PLATELET VOLUME 7.8 fl (7.4-10.4); PLATELET 168 x1000/uL (130-400); RED BLOOD CELL COUNT 3.53 mill/uL (4.2-5.4); RED CELL DISTRIBUTION WIDTH 14.9 % (11.6-14.6)
[2020-06-11 05:46] LABS: CHLORIDE 114 mEq/L (98-107)
[2020-06-11] MEDS ORDERED: CLONIDINE 0.2MG TABLET PO SCH (06:00)
[2020-06-11] MEDS: BLOOD SUGAR DIAGNOSTIC STRIP TEST SCH ×5 (06:21→23:02)
[2020-06-11] MEDS: HYDRALAZINE HCL 100MG TABLET PO SCH ×3 (06:25→21:21)
[2020-06-11] MEDS: DEXAMETHASONE 4MG/ML 1ML VIAL IV SCH ×4 (06:26→23:00)
[2020-06-11] MEDS: INSULIN LISPRO 100 UNITS/ML SUBCUT SCH ×5 (06:26→23:01)
[2020-06-11] MEDS: NITROGLYCERIN 50MG PREMIX 250 ML IV PRN ×3 (07:56→18:34)
[2020-06-11 08:03] LABS: PLATELET ESTIMATE NORMAL
[2020-06-11] MEDS: FENTANYL CITRATE/PF 1,000 MCG in SODIUM CHLORIDE 0.9% 80 ML IV PRN (08:21)
[2020-06-11 08:37] LABS: BG CARBOXYHEMOGLOBIN 0.2 % (0.5-1.5); BG DEOXYHEMOGLOBIN 3.6 % (0.0-5.0); BG HCO3 ACT 25.6 mmol/L (22.0-26.0); BG METHEMOGLOBIN 0.3 % (0.0-1.5); BG OXYGEN SATURATION 96.4 % (92.0-98.5); BG OXYHEMOGLOBIN 95.9 % (94.0-97.0); BG PCO2 40.6 mmHg (35.0-45.0); BG PH 7.417 (7.350-7.450); BG PO2 86.8 mmHg (75.0-100.0); BG SAMPLE SITE RIGHT RADIAL; BG TOTAL HEMOGLOBIN 10.2 g/dL (12.0-18.0); BG VENT MODE VENT - AC
[2020-06-11] MEDS: DOCUSATE SODIUM 250MG CAPSULE PO SCH (08:37)
[2020-06-11] MEDS: PANTOPRAZOLE SODIUM 40 MG/VIAL IV SCH (08:59)
[2020-06-11] MEDS: MORPHINE SULFATE 2 MG/ML CPJ (NOT FOR IM USE) IV PRN ×2 (09:12→16:15)
[2020-06-11] MEDS: LEVETIRACETAM 1,500 MG in SODIUM CHLORIDE 0.9% 100 ML IV SCH ×2 (09:43→20:43)
[2020-06-11] MEDS: PIPERACILLIN/TAZOBACTAM 3.375 G in DEXT 5% WATER 100 ML IV SCH ×3 (11:37→23:05)
[2020-06-11] MEDS: INSULIN GLARGINE UD 100 UNITS/ML SYR SUBCUT SCH ×2 (11:38→23:01)
[2020-06-11] MEDS: FENTANYL CITRATE/PF 2,500 MCG in SODIUM CHLORIDE 0.9% 200 ML IV PRN ×2 (11:59→21:22)
[2020-06-11] MEDS: CLONIDINE 0.3MG TABLET PO SCH ×2 (14:43→21:21)
[2020-06-11] MEDS: ZONISAMIDE 10 MG/ML NG SCH (14:44)
[2020-06-11] MEDS ORDERED: GADOBENATE DIMEGLUMINE 529 MG/ML 10ML IV ONE (17:46)
[2020-06-12] VITALS (107 sets, daily range): BP systolic 110–186; BP diastolic 55–104
[2020-06-12] MEDS: NITROGLYCERIN 50MG PREMIX 250 ML IV PRN ×4 (00:08→16:07)
[2020-06-12] MEDS: SODIUM CHLORIDE 0.9% IV SCH ×3 (00:35→15:59)
[2020-06-12] MEDS: FOSPHENYTOIN SODIUM IV SCH ×3 (00:35→15:59)
[2020-06-12] MEDS: IPRATROPIUM BROMIDE (0.02%) 0.5MG/2.5ML NEB HHN SCH ×4 (02:11→20:45)
[2020-06-12] MEDS: LOSARTAN POTASSIUM 25 MG TABLET PO SCH (03:19)
[2020-06-12] MEDS: DILTIAZEM HCL 60MG TABLET NG SCH ×2 (03:19→07:51)
[2020-06-12] MEDS: BLOOD SUGAR DIAGNOSTIC STRIP TEST SCH ×4 (05:03→23:56)
[2020-06-12] MEDS: HYDRALAZINE HCL 100MG TABLET PO SCH ×3 (05:09→21:07)
[2020-06-12] MEDS: PIPERACILLIN/TAZOBACTAM 3.375 G in DEXT 5% WATER 100 ML IV SCH ×3 (05:09→18:29)
[2020-06-12] MEDS: CLONIDINE 0.3MG TABLET PO SCH ×3 (05:09→21:07)
[2020-06-12] MEDS: INSULIN LISPRO 100 UNITS/ML SUBCUT SCH ×3 (05:09→18:31)
[2020-06-12] MEDS: DEXAMETHASONE 4MG/ML 1ML VIAL IV SCH ×3 (05:10→18:28)
[2020-06-12] MEDS: MORPHINE SULFATE 2 MG/ML CPJ (NOT FOR IM USE) IV PRN ×3 (05:24→18:52)
[2020-06-12 05:49] LABS: HEMATOCRIT. 28.7 % (36.0-48.0); HEMOGLOBIN. 9.5 g/dL (12.0-16.0); MEAN CORPUSCULAR HEMOGLOBIN 27.6 pg (28.0-32.0); MEAN CORPUSCULAR VOLUME 83.8 fL (81.0-99.0); MEAN PLATELET VOLUME 7.5 fl (7.4-10.4); PLATELET 156 x1000/uL (130-400); RED BLOOD CELL COUNT 3.42 mill/uL (4.2-5.4); RED CELL DISTRIBUTION WIDTH 14.5 % (11.6-14.6)
[2020-06-12 05:52] LABS: CHLORIDE 110 mEq/L (98-107)
[2020-06-12] MEDS: PANTOPRAZOLE SODIUM 40 MG/VIAL IV SCH (07:50)
[2020-06-12] MEDS: DOCUSATE SODIUM 250MG CAPSULE PO SCH (07:51)
[2020-06-12] MEDS: LEVETIRACETAM 1,500 MG in SODIUM CHLORIDE 0.9% 100 ML IV SCH ×2 (07:51→21:47)
[2020-06-12] MEDS: FENTANYL CITRATE/PF 2,500 MCG in SODIUM CHLORIDE 0.9% 200 ML IV PRN ×2 (07:51→18:57)
[2020-06-12 08:42] LABS: BG CARBOXYHEMOGLOBIN 0.3 % (0.5-1.5); BG DEOXYHEMOGLOBIN 1.9 % (0.0-5.0); BG FRACTION INSPIRED OXYGEN 50; BG HCO3 ACT 22.9 mmol/L (22.0-26.0); BG METHEMOGLOBIN 0.3 % (0.0-1.5); BG OXYGEN SATURATION 98.1 % (92.0-98.5); BG OXYHEMOGLOBIN 97.5 % (94.0-97.0); BG PCO2 39.7 mmHg (35.0-45.0); BG PH 7.379 (7.350-7.450); BG PO2 118.2 mmHg (75.0-100.0); BG SAMPLE SITE RIGHT RADIAL; BG TOTAL HEMOGLOBIN 11.4 g/dL (12.0-18.0); BG VENT MODE VENT - AC
[2020-06-12] MEDS: ZONISAMIDE 10 MG/ML NG SCH (10:08)
[2020-06-12] MEDS: NITROGLYCERIN OINT 1GM/INCH UDPKT TD SCH ×2 (10:08→18:29)
[2020-06-12] MEDS: INSULIN GLARGINE UD 100 UNITS/ML SYR SUBCUT SCH ×2 (10:11→21:20)
[2020-06-12] MEDS ORDERED: NITROPRUSSIDE 100 MG in DEXT 5% WATER 246 ML IV PRN (10:15)
[2020-06-12 10:44] LABS: PLATELET ESTIMATE NORMAL
[2020-06-12] MEDS: AMLODIPINE 10MG TABLET NG SCH ×2 (13:46→21:07)
[2020-06-12] MEDS ORDERED: MORPHINE SULFATE 4 MG/ML CPJ (NOT FOR IM USE) IV NR ×2 (14:45→16:00)
[2020-06-12] MEDS: LOSARTAN POTASSIUM 50 MG TABLET PO SCH (15:59)
[2020-06-12] MEDS: MIDAZOLAM HCL 100 MG in DEXT 5% WATER 80 ML IV PRN (18:05)
[2020-06-12] MEDS: ENALAPRIL 1.25MG/ML VIAL 1ML IV PRN (18:28)
[2020-06-12] MEDS: NICARDIPINE 100 MG in SODIUM CHLORIDE 0.9% 60 ML IV PRN (20:27)
[2020-06-12] MEDS: LACTATED RINGERS 1,000 ML IV SCH (20:28)
[2020-06-12] MEDS: ONDANSETRON HCL 4MG/2ML INJ IV PRN (21:26)
[2020-06-13] VITALS (102 sets, daily range): BP systolic 106–168; BP diastolic 52–86
[2020-06-13] MEDS: NITROGLYCERIN OINT 1GM/INCH UDPKT TD SCH ×5 (00:02→23:57)
[2020-06-13] MEDS: PIPERACILLIN/TAZOBACTAM 3.375 G in DEXT 5% WATER 100 ML IV SCH ×5 (00:02→23:56)
[2020-06-13] MEDS: INSULIN LISPRO 100 UNITS/ML SUBCUT SCH ×5 (00:03→23:58)
[2020-06-13] MEDS: DEXAMETHASONE 4MG/ML 1ML VIAL IV SCH ×5 (00:03→23:57)
[2020-06-13] MEDS: MORPHINE SULFATE 2 MG/ML CPJ (NOT FOR IM USE) IV PRN (00:49)
[2020-06-13] MEDS: ENALAPRIL 1.25MG/ML VIAL 1ML IV PRN ×2 (01:04→18:15)
[2020-06-13] MEDS: SODIUM CHLORIDE 0.9% IV SCH ×4 (01:04→23:59)
[2020-06-13] MEDS: FOSPHENYTOIN SODIUM IV SCH ×4 (01:04→23:59)
[2020-06-13] MEDS: FENTANYL CITRATE/PF 2,500 MCG in SODIUM CHLORIDE 0.9% 200 ML IV PRN ×3 (02:01→16:47)
[2020-06-13] MEDS: IPRATROPIUM BROMIDE (0.02%) 0.5MG/2.5ML NEB HHN SCH ×4 (02:36→20:03)
[2020-06-13] MEDS: NICARDIPINE 100 MG in SODIUM CHLORIDE 0.9% 60 ML IV PRN ×3 (03:21→20:41)
[2020-06-13] MEDS: LOSARTAN POTASSIUM 50 MG TABLET PO SCH ×2 (04:10→20:34)
[2020-06-13 05:42] LABS: HEMATOCRIT. 31.8 % (36.0-48.0); HEMOGLOBIN. 10.6 g/dL (12.0-16.0); MEAN CORPUSCULAR HEMOGLOBIN 27.8 pg (28.0-32.0); MEAN CORPUSCULAR VOLUME 83.7 fL (81.0-99.0); PLATELET 150 x1000/uL (130-400); RED CELL DISTRIBUTION WIDTH 14.3 % (11.6-14.6)
[2020-06-13 05:47] LABS: CHLORIDE 106 mEq/L (98-107)
[2020-06-13] MEDS: HYDRALAZINE HCL 100MG TABLET PO SCH ×3 (06:10→21:13)
[2020-06-13] MEDS: CLONIDINE 0.3MG TABLET PO SCH ×3 (06:11→21:13)
[2020-06-13] MEDS: BLOOD SUGAR DIAGNOSTIC STRIP TEST SCH ×4 (06:12→23:57)
[2020-06-13 07:28] LABS: PLATELET ESTIMATE NORMAL
[2020-06-13 07:59] LABS: BG BASE EXCESS -1.1 mmol/L (-2.0-2.0); BG CARBOXYHEMOGLOBIN 0.3 % (0.5-1.5); BG DEOXYHEMOGLOBIN 4.8 % (0.0-5.0); BG HCO3 ACT 24.2 mmol/L (22.0-26.0); BG METHEMOGLOBIN 0.3 % (0.0-1.5); BG OXYGEN SATURATION 95.2 % (92.0-98.5); BG OXYHEMOGLOBIN 94.6 % (94.0-97.0); BG PCO2 42.7 mmHg (35.0-45.0); BG PH 7.371 (7.350-7.450); BG PO2 76.1 mmHg (75.0-100.0); BG SAMPLE SITE RIGHT RADIAL; BG TOTAL HEMOGLOBIN 11.1 g/dL (12.0-18.0); BG VENT MODE VENT - AC
[2020-06-13] MEDS: PANTOPRAZOLE SODIUM 40 MG/VIAL IV SCH (09:02)
[2020-06-13] MEDS: LEVETIRACETAM 1,500 MG in SODIUM CHLORIDE 0.9% 100 ML IV SCH ×2 (09:03→20:34)
[2020-06-13] MEDS: AMLODIPINE 10MG TABLET NG SCH ×2 (09:03→20:34)
[2020-06-13] MEDS: INSULIN GLARGINE UD 100 UNITS/ML SYR SUBCUT SCH ×2 (09:04→21:14)
[2020-06-13] MEDS: ZONISAMIDE 10 MG/ML NG SCH (10:50)
[2020-06-13] MEDS ORDERED: METOCLOPRAMIDE HCL 10MG/2ML VIAL IV SCH (12:00)
[2020-06-13] MEDS: DOCUSATE SODIUM SUGAR FREE 100MG/10ML UDC NG SCH (12:48)
[2020-06-13] MEDS: LACTATED RINGERS 1,000 ML IV SCH (13:20)
[2020-06-13] MEDS: MINOXIDIL 2.5MG TABLET NG SCH (13:20)
[2020-06-13] MEDS ORDERED: FENTANYL CITRATE/PF 1,000 MCG in SODIUM CHLORIDE 0.9% 80 ML IV PRN (15:15)
[2020-06-13] MEDS: MIDAZOLAM HCL 100 MG in DEXT 5% WATER 80 ML IV PRN (16:49)
[2020-06-13] MEDS: METOCLOPRAMIDE HCL 10MG/2ML VIAL IV SCH ×2 (18:14→23:57)
[2020-06-13] MEDS: MORPHINE SULFATE 4 MG/ML CPJ (NOT FOR IM USE) IV PRN (22:41)
[2020-06-14] VITALS (91 sets, daily range): BP systolic 106–159; BP diastolic 51–78
[2020-06-14] MEDS: ENALAPRIL 1.25MG/ML VIAL 1ML IV PRN (01:03)
[2020-06-14] MEDS: FENTANYL CITRATE/PF 2,500 MCG in SODIUM CHLORIDE 0.9% 200 ML IV PRN ×3 (01:06→21:33)
[2020-06-14] MEDS: NICARDIPINE 100 MG in SODIUM CHLORIDE 0.9% 60 ML IV PRN ×2 (01:16→08:42)
[2020-06-14] MEDS: IPRATROPIUM BROMIDE (0.02%) 0.5MG/2.5ML NEB HHN SCH ×4 (01:59→20:23)
[2020-06-14] MEDS: LOSARTAN POTASSIUM 50 MG TABLET PO SCH ×3 (03:18→20:02)
[2020-06-14 05:31] LABS: HEMATOCRIT. 28.6 % (36.0-48.0); HEMOGLOBIN. 9.5 g/dL (12.0-16.0); MEAN CORPUSCULAR HEMOGLOBIN 27.9 pg (28.0-32.0); MEAN CORPUSCULAR VOLUME 83.7 fL (81.0-99.0); MEAN PLATELET VOLUME 7.4 fl (7.4-10.4); PLATELET 152 x1000/uL (130-400); RED BLOOD CELL COUNT 3.42 mill/uL (4.2-5.4); RED CELL DISTRIBUTION WIDTH 14.3 % (11.6-14.6)
[2020-06-14] MEDS: BLOOD SUGAR DIAGNOSTIC STRIP TEST SCH ×4 (05:48→23:01)
[2020-06-14 05:55] LABS: CHLORIDE 106 mEq/L (98-107)
[2020-06-14] MEDS: METOCLOPRAMIDE HCL 10MG/2ML VIAL IV SCH ×3 (05:59→17:07)
[2020-06-14] MEDS: DEXAMETHASONE 4MG/ML 1ML VIAL IV SCH (05:59)
[2020-06-14] MEDS: NITROGLYCERIN OINT 1GM/INCH UDPKT TD SCH ×3 (06:00→21:23)
[2020-06-14] MEDS: HYDRALAZINE HCL 100MG TABLET PO SCH ×3 (06:00→21:23)
[2020-06-14] MEDS: CLONIDINE 0.3MG TABLET PO SCH (06:00)
[2020-06-14] MEDS: PIPERACILLIN/TAZOBACTAM 3.375 G in DEXT 5% WATER 100 ML IV SCH ×4 (06:03→23:01)
[2020-06-14] MEDS: INSULIN LISPRO 100 UNITS/ML SUBCUT SCH ×4 (06:03→23:01)
[2020-06-14] MEDS: PANTOPRAZOLE SODIUM 40 MG/VIAL IV SCH (08:41)
[2020-06-14] MEDS: DOCUSATE SODIUM SUGAR FREE 100MG/10ML UDC NG SCH (08:45)
[2020-06-14] MEDS: ZONISAMIDE 10 MG/ML NG SCH (08:45)
[2020-06-14] MEDS: MINOXIDIL 2.5MG TABLET NG SCH (08:45)
[2020-06-14] MEDS: AMLODIPINE 10MG TABLET NG SCH ×2 (08:46→20:03)
[2020-06-14] MEDS: FOSPHENYTOIN SODIUM IV SCH ×2 (09:07→17:06)
[2020-06-14] MEDS: LACTATED RINGERS 1,000 ML IV SCH (09:07)
[2020-06-14] MEDS: LEVETIRACETAM 1,500 MG in SODIUM CHLORIDE 0.9% 100 ML IV SCH ×2 (09:07→21:23)
[2020-06-14] MEDS: SODIUM CHLORIDE 0.9% IV SCH ×2 (09:07→17:06)
[2020-06-14 09:13] LABS: BG BASE EXCESS -0.5 mmol/L (-2.0-2.0); BG CARBOXYHEMOGLOBIN 0.2 % (0.5-1.5); BG FRACTION INSPIRED OXYGEN 50; BG HCO3 ACT 24.9 mmol/L (22.0-26.0); BG METHEMOGLOBIN 0.5 % (0.0-1.5); BG OXYHEMOGLOBIN 96.3 % (94.0-97.0); BG PCO2 44.1 mmHg (35.0-45.0); BG PH 7.369 (7.350-7.450); BG PO2 99.2 mmHg (75.0-100.0); BG SAMPLE SITE RIGHT RADIAL; BG TOTAL HEMOGLOBIN 9.5 g/dL (12.0-18.0); BG VENT MODE VENT - AC
[2020-06-14] MEDS: INSULIN GLARGINE UD 100 UNITS/ML SYR SUBCUT SCH ×2 (10:00→23:01)
[2020-06-14 13:29] LABS: PLATELET ESTIMATE NORMAL
[2020-06-14] MEDS: CLONIDINE 0.1MG TABLET PO SCH ×2 (14:00→21:24)
[2020-06-14] MEDS: MIDAZOLAM HCL 100 MG in DEXT 5% WATER 80 ML IV PRN (14:35)
[2020-06-15] VITALS (98 sets, daily range): BP systolic 115–160; BP diastolic 49–76
[2020-06-15] MEDS: LACTATED RINGERS 1,000 ML IV SCH ×2 (00:45→14:19)
[2020-06-15] MEDS: FOSPHENYTOIN SODIUM IV SCH ×3 (00:46→17:50)
[2020-06-15] MEDS: SODIUM CHLORIDE 0.9% IV SCH ×3 (00:46→17:50)
[2020-06-15] MEDS: METOCLOPRAMIDE HCL 10MG/2ML VIAL IV SCH ×5 (00:46→23:17)
[2020-06-15] MEDS: NICARDIPINE 100 MG in SODIUM CHLORIDE 0.9% 60 ML IV PRN ×3 (00:54→18:48)
[2020-06-15] MEDS: MIDAZOLAM HCL 100 MG in DEXT 5% WATER 80 ML IV PRN ×3 (01:13→22:43)
[2020-06-15] MEDS: IPRATROPIUM BROMIDE (0.02%) 0.5MG/2.5ML NEB HHN SCH ×4 (02:18→20:18)
[2020-06-15] MEDS: LOSARTAN POTASSIUM 50 MG TABLET PO SCH ×3 (03:22→20:30)
[2020-06-15] MEDS: PIPERACILLIN/TAZOBACTAM 3.375 G in DEXT 5% WATER 100 ML IV SCH ×4 (05:06→23:17)
[2020-06-15] MEDS: CLONIDINE 0.1MG TABLET PO SCH ×3 (05:07→22:23)
[2020-06-15] MEDS: NITROGLYCERIN OINT 1GM/INCH UDPKT TD SCH ×3 (05:07→22:24)
[2020-06-15] MEDS: HYDRALAZINE HCL 100MG TABLET PO SCH ×3 (05:07→22:23)
[2020-06-15] MEDS: BLOOD SUGAR DIAGNOSTIC STRIP TEST SCH ×4 (05:46→23:18)
[2020-06-15] MEDS: INSULIN LISPRO 100 UNITS/ML SUBCUT SCH ×4 (06:03→23:18)
[2020-06-15 06:11] LABS: BASOPHILS % 0.3 % (0.0-2.0); EOSINOPHILS % 0.8 % (0.0-5.0); HEMATOCRIT. 32.1 % (36.0-48.0); HEMOGLOBIN. 10.7 g/dL (12.0-16.0); LYMPHOCYTES % 9.9 % (20.0-50.0); MEAN CORPUSCULAR HEMOGLOBIN 27.9 pg (28.0-32.0); MEAN CORPUSCULAR VOLUME 83.9 fL (81.0-99.0); MEAN PLATELET VOLUME 7.6 fl (7.4-10.4); MONOCYTES % 4.9 % (2.0-8.0); NEUTROPHILS % 84.1 % (40.0-76.0); PLATELET 159 x1000/uL (130-400); RED BLOOD CELL COUNT 3.83 mill/uL (4.2-5.4)
[2020-06-15 06:36] LABS: CHLORIDE 106 mEq/L (98-107)
[2020-06-15] MEDS: DEXAMETHASONE 4MG/ML 1ML VIAL IV SCH (08:53)
[2020-06-15] MEDS: PANTOPRAZOLE SODIUM 40 MG/VIAL IV SCH (08:53)
[2020-06-15] MEDS: ENALAPRIL 1.25MG/ML VIAL 1ML IV PRN ×3 (08:54→17:51)
[2020-06-15] MEDS: DOCUSATE SODIUM SUGAR FREE 100MG/10ML UDC NG SCH (08:54)
[2020-06-15] MEDS: AMLODIPINE 10MG TABLET NG SCH ×2 (08:55→20:30)
[2020-06-15] MEDS: MINOXIDIL 2.5MG TABLET NG SCH (08:55)
[2020-06-15] MEDS: ZONISAMIDE 10 MG/ML NG SCH ×2 (09:00→12:10)
[2020-06-15 09:03] LABS: BG BASE EXCESS 1.3 mmol/L (-2.0-2.0); BG DEOXYHEMOGLOBIN 2.5 % (0.0-5.0); BG HCO3 ACT 25.8 mmol/L (22.0-26.0); BG METHEMOGLOBIN 0.2 % (0.0-1.5); BG OXYGEN SATURATION 97.5 % (92.0-98.5); BG OXYHEMOGLOBIN 97.3 % (94.0-97.0); BG PCO2 40.3 mmHg (35.0-45.0); BG PH 7.424 (7.350-7.450); BG PO2 99.6 mmHg (75.0-100.0); BG SAMPLE SITE RIGHT RADIAL; BG TOTAL HEMOGLOBIN 11.1 g/dL (12.0-18.0); BG VENT MODE VENT - AC
[2020-06-15] MEDS: LEVETIRACETAM 1,500 MG in SODIUM CHLORIDE 0.9% 100 ML IV SCH ×2 (10:09→20:30)
[2020-06-15] MEDS: INSULIN GLARGINE UD 100 UNITS/ML SYR SUBCUT SCH ×2 (11:28→23:18)
[2020-06-15] MEDS: FENTANYL CITRATE/PF 2,500 MCG in SODIUM CHLORIDE 0.9% 200 ML IV PRN (11:59)
[2020-06-15] MEDS ORDERED: BISACODYL 10MG SUPP PR SCH (12:00)
[2020-06-15] MEDS ORDERED: FUROSEMIDE 20MG/2ML VIAL IV SCH (12:15)
[2020-06-15] MEDS ORDERED: MAGNESIUM HYDROXIDE 400MG/5ML 30ML UDC PO SCH (13:15)
[2020-06-15] MEDS ORDERED: MAGNESIUM HYDROXIDE 400MG/5ML 30ML UDC PO PRN (13:15)
[2020-06-16] VITALS (121 sets, daily range): BP systolic 97–151; BP diastolic 50–81
[2020-06-16] MEDS: IPRATROPIUM BROMIDE (0.02%) 0.5MG/2.5ML NEB HHN SCH ×4 (00:23→20:44)
[2020-06-16] MEDS: FOSPHENYTOIN SODIUM IV SCH ×3 (00:50→18:37)
[2020-06-16] MEDS: SODIUM CHLORIDE 0.9% IV SCH ×3 (00:50→18:37)
[2020-06-16] MEDS: NICARDIPINE 100 MG in SODIUM CHLORIDE 0.9% 60 ML IV PRN ×3 (00:51→19:56)
[2020-06-16] MEDS: LOSARTAN POTASSIUM 50 MG TABLET PO SCH ×3 (03:58→20:51)
[2020-06-16] MEDS: CLONIDINE 0.1MG TABLET PO SCH ×3 (05:33→21:08)
[2020-06-16] MEDS: NITROGLYCERIN OINT 1GM/INCH UDPKT TD SCH ×3 (05:33→21:08)
[2020-06-16] MEDS: BLOOD SUGAR DIAGNOSTIC STRIP TEST SCH ×4 (05:33→23:35)
[2020-06-16] MEDS: PIPERACILLIN/TAZOBACTAM 3.375 G in DEXT 5% WATER 100 ML IV SCH ×2 (05:33→12:55)
[2020-06-16] MEDS: METOCLOPRAMIDE HCL 10MG/2ML VIAL IV SCH ×4 (05:33→23:39)
[2020-06-16] MEDS: INSULIN LISPRO 100 UNITS/ML SUBCUT SCH ×4 (05:33→23:40)
[2020-06-16] MEDS: HYDRALAZINE HCL 100MG TABLET PO SCH ×3 (05:34→21:08)
[2020-06-16 05:46] LABS: HEMATOCRIT. 33.2 % (36.0-48.0); HEMOGLOBIN. 10.9 g/dL (12.0-16.0); MEAN CORPUSCULAR HEMOGLOBIN 27.6 pg (28.0-32.0); MEAN CORPUSCULAR VOLUME 84.3 fL (81.0-99.0); MEAN PLATELET VOLUME 7.6 fl (7.4-10.4); PLATELET 151 x1000/uL (130-400); RED BLOOD CELL COUNT 3.94 mill/uL (4.2-5.4); RED CELL DISTRIBUTION WIDTH 13.8 % (11.6-14.6)
[2020-06-16 05:55] LABS: CHLORIDE 104 mEq/L (98-107)
[2020-06-16] MEDS: LACTATED RINGERS 1,000 ML IV SCH ×2 (06:32→23:35)
[2020-06-16 08:34] LABS: PLATELET ESTIMATE NORMAL
[2020-06-16] MEDS: PANTOPRAZOLE SODIUM 40 MG/VIAL IV SCH (09:44)
[2020-06-16] MEDS: DEXAMETHASONE 4MG/ML 1ML VIAL IV SCH (09:44)
[2020-06-16] MEDS: LEVETIRACETAM 1,500 MG in SODIUM CHLORIDE 0.9% 100 ML IV SCH ×2 (09:44→20:51)
[2020-06-16] MEDS: DOCUSATE SODIUM SUGAR FREE 100MG/10ML UDC NG SCH (09:44)
[2020-06-16] MEDS: ZONISAMIDE 10 MG/ML NG SCH (09:45)
[2020-06-16] MEDS: AMLODIPINE 10MG TABLET NG SCH ×2 (09:45→20:51)
[2020-06-16] MEDS: MINOXIDIL 2.5MG TABLET NG SCH (09:46)
[2020-06-16] MEDS: FENTANYL CITRATE/PF 2,500 MCG in SODIUM CHLORIDE 0.9% 200 ML IV PRN ×2 (09:47→23:50)
[2020-06-16] MEDS: MIDAZOLAM HCL 100 MG in DEXT 5% WATER 80 ML IV PRN ×2 (09:49→20:10)
[2020-06-16] MEDS: INSULIN GLARGINE UD 100 UNITS/ML SYR SUBCUT SCH ×2 (10:00→22:00)
[2020-06-16] MEDS ORDERED: MIDAZOLAM HCL 5 MG/5 ML VIAL ONE (11:21)
[2020-06-16] MEDS ORDERED: FENTANYL CITRATE/PF 50MCG/ML 2ML VIAL ONE (11:22)
[2020-06-16 13:05] LABS: BG BASE EXCESS 4.8 mmol/L (-2.0-2.0); BG CARBOXYHEMOGLOBIN 0.1 % (0.5-1.5); BG FRACTION INSPIRED OXYGEN 50; BG HCO3 ACT 29.7 mmol/L (22.0-26.0); BG METHEMOGLOBIN 0.2 % (0.0-1.5); BG OXYHEMOGLOBIN 95.7 % (94.0-97.0); BG PCO2 45.2 mmHg (35.0-45.0); BG PH 7.435 (7.350-7.450); BG PO2 78.3 mmHg (75.0-100.0); BG SAMPLE SITE RIGHT RADIAL; BG TOTAL RESPIRATORY RATE 15 b/min; BG VENT MODE VENT - AC
[2020-06-17] VITALS (95 sets, daily range): BP systolic 105–169; BP diastolic 40–83
[2020-06-17] MEDS: IPRATROPIUM BROMIDE (0.02%) 0.5MG/2.5ML NEB HHN SCH ×4 (00:33→20:32)
[2020-06-17] MEDS: SODIUM CHLORIDE 0.9% IV SCH ×3 (01:09→17:05)
[2020-06-17] MEDS: FOSPHENYTOIN SODIUM IV SCH ×3 (01:09→17:05)
[2020-06-17] MEDS: LOSARTAN POTASSIUM 50 MG TABLET PO SCH ×4 (03:26→20:25)
[2020-06-17 05:37] LABS: BASOPHILS % 0.3 % (0.0-2.0); EOSINOPHILS % 1.5 % (0.0-5.0); HEMATOCRIT. 31.4 % (36.0-48.0); HEMOGLOBIN. 10.4 g/dL (12.0-16.0); LYMPHOCYTES % 8.2 % (20.0-50.0); MEAN CORPUSCULAR HEMOGLOBIN 27.7 pg (28.0-32.0); MEAN CORPUSCULAR VOLUME 83.8 fL (81.0-99.0); MEAN PLATELET VOLUME 7.2 fl (7.4-10.4); MONOCYTES % 5.8 % (2.0-8.0); NEUTROPHILS % 84.2 % (40.0-76.0); PLATELET 163 x1000/uL (130-400); RED BLOOD CELL COUNT 3.74 mill/uL (4.2-5.4); RED CELL DISTRIBUTION WIDTH 13.2 % (11.6-14.6)
[2020-06-17 05:42] LABS: CHLORIDE 104 mEq/L (98-107)
[2020-06-17] MEDS: HYDRALAZINE HCL 100MG TABLET PO SCH ×3 (05:47→21:34)
[2020-06-17] MEDS: CLONIDINE 0.1MG TABLET PO SCH (05:47)
[2020-06-17] MEDS: METOCLOPRAMIDE HCL 10MG/2ML VIAL IV SCH ×3 (05:59→17:27)
[2020-06-17] MEDS: NITROGLYCERIN OINT 1GM/INCH UDPKT TD SCH ×3 (06:00→21:34)
[2020-06-17] MEDS: BLOOD SUGAR DIAGNOSTIC STRIP TEST SCH ×3 (06:00→17:27)
[2020-06-17] MEDS: INSULIN LISPRO 100 UNITS/ML SUBCUT SCH ×3 (06:00→17:27)
[2020-06-17] MEDS: DOCUSATE SODIUM SUGAR FREE 100MG/10ML UDC NG SCH (08:21)
[2020-06-17] MEDS: PANTOPRAZOLE SODIUM 40 MG/VIAL IV SCH (08:21)
[2020-06-17] MEDS: DEXAMETHASONE 4MG/ML 1ML VIAL IV SCH (08:21)
[2020-06-17] MEDS: MINOXIDIL 2.5MG TABLET NG SCH ×2 (08:22→17:06)
[2020-06-17] MEDS: ZONISAMIDE 10 MG/ML NG SCH (08:22)
[2020-06-17] MEDS: AMLODIPINE 10MG TABLET NG SCH ×2 (08:22→20:25)
[2020-06-17] MEDS: NICARDIPINE 100 MG in SODIUM CHLORIDE 0.9% 60 ML IV PRN ×2 (08:23→18:59)
[2020-06-17] MEDS: MIDAZOLAM HCL 100 MG in DEXT 5% WATER 80 ML IV PRN ×2 (08:24→18:58)
[2020-06-17 09:17] LABS: BG BASE EXCESS 6.4 mmol/L (-2.0-2.0); BG CARBOXYHEMOGLOBIN 0.7 % (0.5-1.5); BG DEOXYHEMOGLOBIN 0.9 % (0.0-5.0); BG FRACTION INSPIRED OXYGEN 50; BG HCO3 ACT 30.7 mmol/L (22.0-26.0); BG METHEMOGLOBIN 0.3 % (0.0-1.5); BG OXYGEN SATURATION 99.1 % (92.0-98.5); BG OXYHEMOGLOBIN 98.1 % (94.0-97.0); BG PH 7.471 (7.350-7.450); BG PO2 136.9 mmHg (75.0-100.0); BG SAMPLE SITE RIGHT RADIAL; BG TOTAL HEMOGLOBIN 8.8 g/dL (12.0-18.0); BG VENT MODE VENT - AC
[2020-06-17] MEDS: INSULIN GLARGINE UD 100 UNITS/ML SYR SUBCUT SCH ×2 (10:00→21:35)
[2020-06-17] MEDS: LEVETIRACETAM 1,500 MG in SODIUM CHLORIDE 0.9% 100 ML IV SCH ×2 (12:07→22:44)
[2020-06-17] MEDS: ENALAPRIL 1.25MG/ML VIAL 1ML IV PRN ×2 (12:22→18:55)
[2020-06-17 12:32] LABS: PARTIAL THROMBOPLASTIN TIME 26.5 sec (23.4-31.0); PROTHROMBIN TIME 10.1 sec (9.6-11.0)
[2020-06-17] MEDS: CLONIDINE 0.2MG TABLET PO SCH ×2 (13:10→21:33)
[2020-06-17] MEDS: FENTANYL CITRATE/PF 2,500 MCG in SODIUM CHLORIDE 0.9% 200 ML IV PRN (17:07)
[2020-06-17] MEDS: LACTATED RINGERS 1,000 ML IV SCH (17:23)
[2020-06-17] MEDS: CEFEPIME 2,000 MG in DEXT 5% WATER 100 ML IV SCH (22:25)
[2020-06-18] VITALS (101 sets, daily range): BP systolic 124–184; BP diastolic 57–126
[2020-06-18] MEDS: METOCLOPRAMIDE HCL 10MG/2ML VIAL IV SCH ×4 (00:23→17:37)
[2020-06-18] MEDS: BLOOD SUGAR DIAGNOSTIC STRIP TEST SCH ×4 (00:24→17:37)
[2020-06-18] MEDS: SODIUM CHLORIDE 0.9% IV SCH ×3 (00:33→17:45)
[2020-06-18] MEDS: FOSPHENYTOIN SODIUM IV SCH ×3 (00:33→17:45)
[2020-06-18] MEDS: IPRATROPIUM BROMIDE (0.02%) 0.5MG/2.5ML NEB HHN SCH ×4 (02:22→20:01)
[2020-06-18] MEDS ORDERED: DILTIAZEM HCL 5MG/ML 5ML VIAL IV NR (05:30)
[2020-06-18] MEDS: MORPHINE SULFATE 4 MG/ML CPJ (NOT FOR IM USE) IV PRN ×4 (05:41→17:36)
[2020-06-18] MEDS: LOSARTAN POTASSIUM 50 MG TABLET PO SCH ×3 (05:43→21:34)
[2020-06-18] MEDS: HYDRALAZINE HCL 100MG TABLET PO SCH ×3 (05:47→21:35)
[2020-06-18] MEDS: CLONIDINE 0.2MG TABLET PO SCH ×3 (05:51→22:46)
[2020-06-18] MEDS: NITROGLYCERIN OINT 1GM/INCH UDPKT TD SCH ×3 (05:51→22:50)
[2020-06-18] MEDS: INSULIN LISPRO 100 UNITS/ML SUBCUT SCH ×4 (06:00→17:37)
[2020-06-18 06:06] LABS: HEMATOCRIT. 32.7 % (36.0-48.0); HEMOGLOBIN. 10.8 g/dL (12.0-16.0); MEAN CORPUSCULAR VOLUME 84.7 fL (81.0-99.0); PLATELET 144 x1000/uL (130-400); RED BLOOD CELL COUNT 3.86 mill/uL (4.2-5.4); RED CELL DISTRIBUTION WIDTH 13.5 % (11.6-14.6)
[2020-06-18 06:07] LABS: PROTHROMBIN TIME 10.2 sec (9.6-11.0)
[2020-06-18 06:17] LABS: CHLORIDE 104 mEq/L (98-107)
[2020-06-18] MEDS: MIDAZOLAM HCL 100 MG in DEXT 5% WATER 80 ML IV PRN ×2 (07:42→17:51)
[2020-06-18 07:58] LABS: BG BASE EXCESS 3.5 mmol/L (-2.0-2.0); BG CARBOXYHEMOGLOBIN 0.3 % (0.5-1.5); BG DEOXYHEMOGLOBIN 2.2 % (0.0-5.0); BG METHEMOGLOBIN 0.1 % (0.0-1.5); BG OXYGEN SATURATION 97.8 % (92.0-98.5); BG OXYHEMOGLOBIN 97.4 % (94.0-97.0); BG PH 7.441 (7.350-7.450); BG PO2 104.8 mmHg (75.0-100.0); BG SAMPLE SITE RIGHT RADIAL; BG TOTAL HEMOGLOBIN 10.7 g/dL (12.0-18.0); BG VENT MODE VENT - AC
[2020-06-18] MEDS: PANTOPRAZOLE SODIUM 40 MG/VIAL IV SCH (08:29)
[2020-06-18] MEDS: DEXAMETHASONE 4MG/ML 1ML VIAL IV SCH (08:29)
[2020-06-18] MEDS ORDERED: DILTIAZEM HCL 5MG/ML 5ML VIAL IV SCH (08:30)
[2020-06-18] MEDS: LACTATED RINGERS 1,000 ML IV SCH (08:31)
[2020-06-18] MEDS: DOCUSATE SODIUM SUGAR FREE 100MG/10ML UDC NG SCH (08:31)
[2020-06-18] MEDS: LEVETIRACETAM 1,500 MG in SODIUM CHLORIDE 0.9% 100 ML IV SCH ×2 (08:31→21:36)
[2020-06-18] MEDS: AMLODIPINE 10MG TABLET NG SCH (08:32)
[2020-06-18] MEDS: MINOXIDIL 2.5MG TABLET NG SCH ×2 (08:32→17:36)
[2020-06-18 08:47] LABS: PLATELET ESTIMATE NORMAL
[2020-06-18] MEDS: ZONISAMIDE 10 MG/ML NG SCH (09:00)
[2020-06-18] MEDS: INSULIN GLARGINE UD 100 UNITS/ML SYR SUBCUT SCH ×2 (10:00→22:00)
[2020-06-18] MEDS: CEFEPIME 2,000 MG in DEXT 5% WATER 100 ML IV SCH ×2 (10:24→21:36)
[2020-06-18] MEDS: ENALAPRIL 1.25MG/ML VIAL 1ML IV PRN ×2 (10:24→16:28)
[2020-06-18] MEDS: FENTANYL CITRATE/PF 2,500 MCG in SODIUM CHLORIDE 0.9% 200 ML IV PRN (15:52)
[2020-06-18] MEDS ORDERED: MIDAZOLAM HCL 5 MG/5 ML VIAL ONE (16:46)
[2020-06-18] MEDS ORDERED: FENTANYL CITRATE/PF 50MCG/ML 2ML VIAL ONE (16:46)
[2020-06-18] MEDS ORDERED: MIDAZOLAM HCL 5 MG/5 ML VIAL IV PRN (17:08)
[2020-06-18] MEDS ORDERED: MIDAZOLAM HCL 100 MG in DEXT 5% WATER 80 ML IV PRN (17:15)
[2020-06-18] MEDS ORDERED: FENTANYL CITRATE/PF 1,000 MCG in SODIUM CHLORIDE 0.9% 80 ML IV PRN (17:15)
[2020-06-18] MEDS: DILTIAZEM HCL 30MG TABLET PO SCH (22:45)
[2020-06-19] VITALS (101 sets, daily range): BP systolic 107–211; BP diastolic 58–105
[2020-06-19] MEDS: BLOOD SUGAR DIAGNOSTIC STRIP TEST SCH ×5 (00:24→23:27)
[2020-06-19] MEDS: FOSPHENYTOIN SODIUM IV SCH ×3 (00:33→16:34)
[2020-06-19] MEDS: METOCLOPRAMIDE HCL 10MG/2ML VIAL IV SCH ×5 (00:33→23:28)
[2020-06-19] MEDS: SODIUM CHLORIDE 0.9% IV SCH ×3 (00:33→16:34)
[2020-06-19] MEDS: IPRATROPIUM BROMIDE (0.02%) 0.5MG/2.5ML NEB HHN SCH ×4 (02:10→20:34)
[2020-06-19] MEDS: LORAZEPAM 2MG/ML CPJ IV PRN ×2 (03:10→11:30)
[2020-06-19] MEDS: LOSARTAN POTASSIUM 50 MG TABLET PO SCH ×3 (03:10→19:57)
[2020-06-19] MEDS: NITROGLYCERIN OINT 1GM/INCH UDPKT TD SCH ×3 (05:24→21:33)
[2020-06-19] MEDS: CLONIDINE 0.2MG TABLET PO SCH ×2 (05:25→13:39)
[2020-06-19] MEDS: DILTIAZEM HCL 30MG TABLET PO SCH (05:25)
[2020-06-19] MEDS: HYDRALAZINE HCL 100MG TABLET PO SCH ×3 (05:25→21:01)
[2020-06-19 05:48] LABS: BASOPHILS % 0.2 % (0.0-2.0); EOSINOPHILS % 1.4 % (0.0-5.0); HEMATOCRIT. 27.9 % (36.0-48.0); HEMOGLOBIN. 9.3 g/dL (12.0-16.0); LYMPHOCYTES % 7.3 % (20.0-50.0); MEAN CORPUSCULAR HEMOGLOBIN 28.5 pg (28.0-32.0); MEAN CORPUSCULAR VOLUME 85.1 fL (81.0-99.0); MONOCYTES % 4.7 % (2.0-8.0); NEUTROPHILS % 86.4 % (40.0-76.0); PLATELET 156 x1000/uL (130-400); RED BLOOD CELL COUNT 3.28 mill/uL (4.2-5.4); RED CELL DISTRIBUTION WIDTH 13.3 % (11.6-14.6)
[2020-06-19] MEDS: INSULIN LISPRO 100 UNITS/ML SUBCUT SCH ×5 (06:00→23:27)
[2020-06-19 06:01] LABS: CHLORIDE 106 mEq/L (98-107)
[2020-06-19] MEDS: LACTATED RINGERS 1,000 ML IV SCH (06:38)
[2020-06-19] MEDS: ENALAPRIL 1.25MG/ML VIAL 1ML IV PRN ×2 (08:54→14:46)
[2020-06-19] MEDS: PANTOPRAZOLE SODIUM 40 MG/VIAL IV SCH (08:54)
[2020-06-19] MEDS: DEXAMETHASONE 4MG/ML 1ML VIAL IV SCH (08:54)
[2020-06-19] MEDS: MINOXIDIL 2.5MG TABLET NG SCH (08:54)
[2020-06-19] MEDS: ZONISAMIDE 10 MG/ML NG SCH (08:55)
[2020-06-19] MEDS: DOCUSATE SODIUM SUGAR FREE 100MG/10ML UDC NG SCH (08:55)
[2020-06-19] MEDS ORDERED: DILTIAZEM HCL 30MG TABLET PO NR (09:30)
[2020-06-19] MEDS: CEFEPIME 2,000 MG in DEXT 5% WATER 100 ML IV SCH (09:42)
[2020-06-19] MEDS ORDERED: POTASSIUM CHLORIDE 20MEQ TABLET SR PO SCH (09:45)
[2020-06-19] MEDS: INSULIN GLARGINE UD 100 UNITS/ML SYR SUBCUT SCH ×2 (10:35→21:01)
[2020-06-19] MEDS: LEVETIRACETAM 1,500 MG in SODIUM CHLORIDE 0.9% 100 ML IV SCH ×2 (11:30→21:28)
[2020-06-19] MEDS ORDERED: MINOXIDIL 10MG TABLET PO SCH (12:30)
[2020-06-19] MEDS ORDERED: DILTIAZEM HCL 30MG TABLET PO SCH (14:00)
[2020-06-19] MEDS: DILTIAZEM HCL 5MG/ML 5ML VIAL IV PRN ×2 (15:22→22:39)
[2020-06-19] MEDS: CEFTRIAXONE 1,000 MG in DEXTROSE 5% WATER 50 ML IV SCH (15:22)
[2020-06-19] MEDS ORDERED: LORAZEPAM 2MG/ML CPJ IM PRN (16:00)
[2020-06-19] MEDS ORDERED: DILTIAZEM HCL 125 MG in DEXT 5% WATER 100 ML IV PRN (16:00)
[2020-06-19] MEDS ORDERED: LABETALOL 5MG/ML SYR 20 MG/4 ML SYRINGE IV PRN (16:00)
[2020-06-19] MEDS: FENTANYL CITRATE/PF 50MCG/ML 2ML VIAL IV SCH ×3 (16:35→23:45)
[2020-06-19] MEDS: DILTIAZEM HCL 90MG TABLET PO SCH ×2 (17:41→23:45)
[2020-06-19] MEDS: NICARDIPINE 100 MG in SODIUM CHLORIDE 0.9% 60 ML IV PRN (18:18)
[2020-06-19] MEDS: MINOXIDIL 10MG TABLET PO SCH (19:58)
[2020-06-19] MEDS: CLONIDINE 0.3MG TABLET PO SCH (21:01)
[2020-06-20] VITALS (101 sets, daily range): BP systolic 93–175; BP diastolic 36–147
[2020-06-20] MEDS: NICARDIPINE 100 MG in SODIUM CHLORIDE 0.9% 60 ML IV PRN ×3 (00:30→17:02)
[2020-06-20] MEDS: FOSPHENYTOIN SODIUM IV SCH ×3 (00:37→16:52)
[2020-06-20] MEDS: SODIUM CHLORIDE 0.9% IV SCH ×3 (00:37→16:52)
[2020-06-20] MEDS: IPRATROPIUM BROMIDE (0.02%) 0.5MG/2.5ML NEB HHN SCH ×4 (01:58→20:36)
[2020-06-20] MEDS: LOSARTAN POTASSIUM 50 MG TABLET PO SCH ×3 (03:19→20:24)
[2020-06-20] MEDS: FENTANYL CITRATE/PF 50MCG/ML 2ML VIAL IV SCH ×6 (03:20→23:28)
[2020-06-20 04:45] LABS: HEMATOCRIT. 29.6 % (36.0-48.0); HEMOGLOBIN. 9.9 g/dL (12.0-16.0); MEAN CORPUSCULAR HEMOGLOBIN 28.1 pg (28.0-32.0); MEAN PLATELET VOLUME 6.9 fl (7.4-10.4); PLATELET 186 x1000/uL (130-400); RED BLOOD CELL COUNT 3.52 mill/uL (4.2-5.4); RED CELL DISTRIBUTION WIDTH 13.7 % (11.6-14.6)
[2020-06-20 04:56] LABS: CHLORIDE 106 mEq/L (98-107)
[2020-06-20] MEDS: BLOOD SUGAR DIAGNOSTIC STRIP TEST SCH ×3 (05:50→17:59)
[2020-06-20] MEDS: INSULIN LISPRO 100 UNITS/ML SUBCUT SCH ×3 (05:50→17:58)
[2020-06-20] MEDS: NITROGLYCERIN OINT 1GM/INCH UDPKT TD SCH ×3 (05:56→21:52)
[2020-06-20] MEDS: DILTIAZEM HCL 90MG TABLET PO SCH ×4 (05:57→23:29)
[2020-06-20] MEDS: METOCLOPRAMIDE HCL 10MG/2ML VIAL IV SCH ×4 (05:58→23:28)
[2020-06-20] MEDS: HYDRALAZINE HCL 100MG TABLET PO SCH ×3 (05:58→21:53)
[2020-06-20] MEDS: CLONIDINE 0.3MG TABLET PO SCH ×3 (05:58→21:53)
[2020-06-20 07:25] LABS: PLATELET ESTIMATE NORMAL
[2020-06-20] MEDS: DEXAMETHASONE 4MG/ML 1ML VIAL IV SCH (08:40)
[2020-06-20] MEDS: LEVETIRACETAM 1,500 MG in SODIUM CHLORIDE 0.9% 100 ML IV SCH ×2 (08:40→20:26)
[2020-06-20] MEDS: DOCUSATE SODIUM SUGAR FREE 100MG/10ML UDC NG SCH (08:41)
[2020-06-20] MEDS: PANTOPRAZOLE SODIUM 40 MG/VIAL IV SCH (08:41)
[2020-06-20] MEDS: MINOXIDIL 10MG TABLET PO SCH ×2 (08:42→21:53)
[2020-06-20] MEDS ORDERED: LIDOCAINE HCL 1% 20ML VIAL (Pyxis) INJ ONE (09:36)
[2020-06-20] MEDS ORDERED: POTASSIUM CHLORIDE 20MEQ TABLET SR PO NR (11:15)
[2020-06-20] MEDS: ZONISAMIDE 10 MG/ML NG SCH (11:53)
[2020-06-20] MEDS: INSULIN GLARGINE UD 100 UNITS/ML SYR SUBCUT SCH ×2 (11:54→22:17)
[2020-06-20] MEDS: CEFTRIAXONE 1,000 MG in DEXTROSE 5% WATER 50 ML IV SCH (16:52)
[2020-06-20] MEDS: LABETALOL HCL 200MG TABLET PO SCH (21:54)
[2020-06-21] VITALS (77 sets, daily range): BP systolic 110–151; BP diastolic 50–75
[2020-06-21] MEDS: BLOOD SUGAR DIAGNOSTIC STRIP TEST SCH ×4 (00:05→17:40)
[2020-06-21] MEDS: SODIUM CHLORIDE 0.9% IV SCH ×3 (00:07→17:38)
[2020-06-21] MEDS: FOSPHENYTOIN SODIUM IV SCH ×3 (00:07→17:38)
[2020-06-21] MEDS: NICARDIPINE 100 MG in SODIUM CHLORIDE 0.9% 60 ML IV PRN ×2 (01:06→09:40)
[2020-06-21] MEDS: IPRATROPIUM BROMIDE (0.02%) 0.5MG/2.5ML NEB HHN SCH ×4 (01:54→20:44)
[2020-06-21] MEDS: LOSARTAN POTASSIUM 50 MG TABLET PO SCH ×3 (04:32→20:47)
[2020-06-21] MEDS: FENTANYL CITRATE/PF 50MCG/ML 2ML VIAL IV SCH ×5 (04:32→20:46)
[2020-06-21] MEDS: METOCLOPRAMIDE HCL 10MG/2ML VIAL IV SCH ×3 (05:42→17:40)
[2020-06-21] MEDS: CLONIDINE 0.3MG TABLET PO SCH ×3 (05:43→22:01)
[2020-06-21] MEDS: HYDRALAZINE HCL 100MG TABLET PO SCH ×3 (05:43→22:01)
[2020-06-21] MEDS: NITROGLYCERIN OINT 1GM/INCH UDPKT TD SCH ×3 (05:43→21:14)
[2020-06-21] MEDS: DILTIAZEM HCL 90MG TABLET PO SCH ×3 (05:43→17:38)
[2020-06-21] MEDS: INSULIN LISPRO 100 UNITS/ML SUBCUT SCH ×4 (05:50→17:39)
[2020-06-21] MEDS: LEVETIRACETAM 1,500 MG in SODIUM CHLORIDE 0.9% 100 ML IV SCH ×2 (09:16→20:49)
[2020-06-21] MEDS: ZONISAMIDE 10 MG/ML NG SCH (09:17)
[2020-06-21] MEDS: DEXAMETHASONE 4MG/ML 1ML VIAL IV SCH (09:17)
[2020-06-21] MEDS: DOCUSATE SODIUM SUGAR FREE 100MG/10ML UDC NG SCH (09:18)
[2020-06-21] MEDS: PANTOPRAZOLE SODIUM 40 MG/VIAL IV SCH (09:18)
[2020-06-21] MEDS: LABETALOL HCL 200MG TABLET PO SCH ×2 (09:19→21:14)
[2020-06-21] MEDS: MINOXIDIL 10MG TABLET PO SCH ×2 (09:19→20:47)
[2020-06-21] MEDS: INSULIN GLARGINE UD 100 UNITS/ML SYR SUBCUT SCH ×2 (09:20→21:18)
[2020-06-21] MEDS ORDERED: LIDOCAINE HCL 1% 20ML VIAL (Pyxis) INJ ONE (09:35)
[2020-06-21] MEDS: CEFTRIAXONE 1,000 MG in DEXTROSE 5% WATER 50 ML IV SCH (15:29)
[2020-06-21] MEDS ORDERED: SORBITOL 70% SOLN 30ML PO NR (16:30)
[2020-06-21] MEDS: LACTULOSE 20G/30ML UDC PO SCH (20:45)
[2020-06-21] MEDS: SENNOSIDES/DOCUSATE SOD 8.6/50MG TABLET PO SCH (20:47)
[2020-06-22] VITALS (45 sets, daily range): BP systolic 111–160; BP diastolic 57–79
[2020-06-22] MEDS: DILTIAZEM HCL 90MG TABLET PO SCH ×5 (00:38→23:40)
[2020-06-22] MEDS: FENTANYL CITRATE/PF 50MCG/ML 2ML VIAL IV SCH ×4 (00:38→12:56)
[2020-06-22] MEDS: METOCLOPRAMIDE HCL 10MG/2ML VIAL IV SCH ×4 (00:38→17:34)
[2020-06-22] MEDS: BLOOD SUGAR DIAGNOSTIC STRIP TEST SCH ×4 (00:41→17:33)
[2020-06-22] MEDS: FOSPHENYTOIN SODIUM IV SCH ×3 (00:45→17:34)
[2020-06-22] MEDS: SODIUM CHLORIDE 0.9% IV SCH ×3 (00:45→17:34)
[2020-06-22] MEDS: INSULIN LISPRO 100 UNITS/ML SUBCUT SCH ×4 (00:46→17:33)
[2020-06-22] MEDS: IPRATROPIUM BROMIDE (0.02%) 0.5MG/2.5ML NEB HHN SCH ×3 (01:13→20:04)
[2020-06-22] MEDS: LOSARTAN POTASSIUM 50 MG TABLET PO SCH ×3 (03:54→20:44)
[2020-06-22 05:38] LABS: BASOPHILS % 0.3 % (0.0-2.0); EOSINOPHILS % 1.4 % (0.0-5.0); HEMATOCRIT. 26.4 % (36.0-48.0); HEMOGLOBIN. 8.9 g/dL (12.0-16.0); LYMPHOCYTES % 12.5 % (20.0-50.0); MEAN CORPUSCULAR HEMOGLOBIN 28.8 pg (28.0-32.0); MEAN CORPUSCULAR VOLUME 85.1 fL (81.0-99.0); MEAN PLATELET VOLUME 7.3 fl (7.4-10.4); MONOCYTES % 7.8 % (2.0-8.0); PLATELET 166 x1000/uL (130-400); RED CELL DISTRIBUTION WIDTH 13.8 % (11.6-14.6)
[2020-06-22] MEDS: CLONIDINE 0.3MG TABLET PO SCH ×3 (05:41→23:28)
[2020-06-22] MEDS: NITROGLYCERIN OINT 1GM/INCH UDPKT TD SCH ×3 (05:41→23:27)
[2020-06-22] MEDS: HYDRALAZINE HCL 100MG TABLET PO SCH ×3 (05:42→23:28)
[2020-06-22 05:44] LABS: CHLORIDE 107 mEq/L (98-107)
[2020-06-22] MEDS: PANTOPRAZOLE SODIUM 40 MG/VIAL IV SCH (09:09)
[2020-06-22] MEDS: LEVETIRACETAM 1,500 MG in SODIUM CHLORIDE 0.9% 100 ML IV SCH ×2 (09:09→20:47)
[2020-06-22] MEDS: DOCUSATE SODIUM SUGAR FREE 100MG/10ML UDC NG SCH (09:10)
[2020-06-22] MEDS: POLYETHYLENE GLYCOL 3350 (17GM) 1 DOSE PACK PO SCH (09:10)
[2020-06-22] MEDS: MINOXIDIL 10MG TABLET PO SCH ×2 (09:10→23:29)
[2020-06-22] MEDS: LABETALOL HCL 200MG TABLET PO SCH ×2 (09:10→20:44)
[2020-06-22] MEDS: INSULIN GLARGINE UD 100 UNITS/ML SYR SUBCUT SCH ×2 (09:22→22:00)
[2020-06-22] MEDS: ZONISAMIDE 10 MG/ML NG SCH (09:23)
[2020-06-22] MEDS: CEFTRIAXONE 1,000 MG in DEXTROSE 5% WATER 50 ML IV SCH (15:43)
[2020-06-22] MEDS: SENNOSIDES/DOCUSATE SOD 8.6/50MG TABLET PO SCH (20:44)
[2020-06-22] MEDS: LACTULOSE 20G/30ML UDC PO SCH (20:45)
[2020-06-23] VITALS (13 sets, daily range): BP systolic 121–156; BP diastolic 62–85
[2020-06-23] MEDS: IPRATROPIUM BROMIDE (0.02%) 0.5MG/2.5ML NEB HHN SCH ×4 (02:03→20:23)
[2020-06-23] MEDS: METOCLOPRAMIDE HCL 10MG/2ML VIAL IV SCH ×4 (02:27→18:15)
[2020-06-23] MEDS: FOSPHENYTOIN SODIUM IV SCH ×3 (02:28→19:37)
[2020-06-23] MEDS: SODIUM CHLORIDE 0.9% IV SCH ×3 (02:28→19:37)
[2020-06-23] MEDS: ONDANSETRON HCL 4MG/2ML INJ IV PRN (02:36)
[2020-06-23] MEDS: INSULIN LISPRO 100 UNITS/ML SUBCUT SCH ×4 (06:00→18:00)
[2020-06-23] MEDS: LOSARTAN POTASSIUM 50 MG TABLET PO SCH ×3 (06:13→20:45)
[2020-06-23] MEDS: DILTIAZEM HCL 90MG TABLET PO SCH ×3 (06:14→18:15)
[2020-06-23] MEDS: HYDRALAZINE HCL 100MG TABLET PO SCH ×2 (06:14→14:19)
[2020-06-23] MEDS: CLONIDINE 0.3MG TABLET PO SCH ×2 (06:15→14:19)
[2020-06-23] MEDS: BLOOD SUGAR DIAGNOSTIC STRIP TEST SCH ×4 (06:16→18:00)
[2020-06-23] MEDS: NITROGLYCERIN OINT 1GM/INCH UDPKT TD SCH ×2 (06:16→14:19)
[2020-06-23] MEDS: LEVETIRACETAM 1,500 MG in SODIUM CHLORIDE 0.9% 100 ML IV SCH (09:21)
[2020-06-23] MEDS ORDERED: T3 PO (09:28)
[2020-06-23] MEDS ORDERED: AMLO-337 PO (09:28)
[2020-06-23] MEDS ORDERED: CARV3.1242 PO (09:29)
[2020-06-23] MEDS ORDERED: CLON0.3T MT (09:29)
[2020-06-23] MEDS ORDERED: HYDR-2510 PO (09:30)
[2020-06-23] MEDS ORDERED: LEVO25TA7 PO (09:31)
[2020-06-23] MEDS ORDERED: METF-414 PO (09:31)
[2020-06-23] MEDS ORDERED: SIMV-43 PO (09:32)
[2020-06-23] MEDS ORDERED: POTA-9 PO (09:32)
[2020-06-23] MEDS ORDERED: VALS320T16 PO (09:33)
[2020-06-23 09:37] LABS: BG BASE EXCESS 0.4 mmol/L (-2.0-2.0); BG CARBOXYHEMOGLOBIN 0.3 % (0.5-1.5); BG DEOXYHEMOGLOBIN 1.1 % (0.0-5.0); BG FRACTION INSPIRED OXYGEN 40; BG HCO3 ACT 23.7 mmol/L (22.0-26.0); BG METHEMOGLOBIN 0.4 % (0.0-1.5); BG OXYGEN SATURATION 98.9 % (92.0-98.5); BG OXYHEMOGLOBIN 98.2 % (94.0-97.0); BG PCO2 32.9 mmHg (35.0-45.0); BG PH 7.476 (7.350-7.450); BG PO2 139.4 mmHg (75.0-100.0); BG SAMPLE SITE RIGHT RADIAL; BG TOTAL HEMOGLOBIN 9.1 g/dL (12.0-18.0); BG VENT MODE VENT - SIMV
[2020-06-23] MEDS: MINOXIDIL 10MG TABLET PO SCH ×2 (09:50→20:45)
[2020-06-23] MEDS: LABETALOL HCL 200MG TABLET PO SCH ×2 (09:50→20:45)
[2020-06-23] MEDS: POLYETHYLENE GLYCOL 3350 (17GM) 1 DOSE PACK PO SCH (09:51)
[2020-06-23] MEDS: PANTOPRAZOLE SODIUM 40 MG/VIAL IV SCH (09:51)
[2020-06-23] MEDS: DOCUSATE SODIUM SUGAR FREE 100MG/10ML UDC NG SCH (09:51)
[2020-06-23] MEDS: INSULIN GLARGINE UD 100 UNITS/ML SYR SUBCUT SCH (10:33)
[2020-06-23] MEDS: ZONISAMIDE 10 MG/ML NG SCH (10:39)
[2020-06-23] MEDS: CEFTRIAXONE 1,000 MG in DEXTROSE 5% WATER 50 ML IV SCH (16:28)
[2020-06-23] MEDS: SENNOSIDES/DOCUSATE SOD 8.6/50MG TABLET PO SCH (20:46)
[2020-06-23] MEDS: LACTULOSE 20G/30ML UDC PO SCH (20:46)
== END 2020-06-24 00:07 | DRG 3 ==
LOC: ER 13:28 → MICUSO 18:00 → MICUNO 06-03 01:30 → 5EST 06-22 14:14
PROVIDERS: ADMIT Internal Medicine; ATTEND Internal Medicine
PROC: 00B10ZZ Excision of Cerebral Meninges, Open Approach (ICD-10-PCS; 2020-06-03)
PROC: 00U20JZ Supplement Dura Mater with Synthetic Substitute, Open Approach (ICD-10-PCS; 2020-06-08)
PROC: 5A1955Z Respiratory Ventilation, Greater than 96 Consecutive Hours (ICD-10-PCS; principal; 2020-06-19)
PROC: 0B110F4 Bypass Trachea to Cutaneous with Tracheostomy Device, Open Approach (ICD-10-PCS; 2020-06-19)
PROC: 00N00ZZ Release Brain, Open Approach (ICD-10-PCS; 2020-06-19)
PROC: 0GTJ0ZZ Resection of Thyroid Gland Isthmus, Open Approach (ICD-10-PCS; 2020-06-19)
PROC: 0JR607Z Replacement of Chest Subcutaneous Tissue and Fascia with Autologous Tissue Substitute, Open Approach (ICD-10-PCS; 2020-06-19)
PROC: 0DJ68ZZ Inspection of Stomach, Via Natural or Artificial Opening Endoscopic (ICD-10-PCS; 2020-06-19)
PROC: 0DH68UZ Insertion of Feeding Device into Stomach, Via Natural or Artificial Opening Endoscopic (ICD-10-PCS; 2020-06-19)
PROC: 0BH18EZ Insertion of Endotracheal Airway into Trachea, Via Natural or Artificial Opening Endoscopic (ICD-10-PCS; 2020-06-19)
DX: D32.0 Benign neoplasm of cerebral meninges (principal); G93.41 Metabolic encephalopathy; S06.5X9A Traumatic subdural hemorrhage with loss of consciousness of unspecified duration, initial encounter; J18.9 Pneumonia, unspecified organism; J96.02 Acute respiratory failure with hypercapnia; C71.2 Malignant neoplasm of temporal lobe; D68.69 Other thrombophilia; E87.2 Acidosis; I47.1 Supraventricular tachycardia; I82.622 Acute embolism and thrombosis of deep veins of left upper extremity; Z99.11 Dependence on respirator [ventilator] status; D49.6 Neoplasm of unspecified behavior of brain; G13.1 Other systemic atrophy primarily affecting central nervous system in neoplastic disease; E87.6 Hypokalemia; I10 Essential (primary) hypertension; D64.9 Anemia, unspecified; E03.9 Hypothyroidism, unspecified; E11.65 Type 2 diabetes mellitus with hyperglycemia; E78.5 Hyperlipidemia, unspecified; G40.909 Epilepsy, unspecified, not intractable, without status epilepticus; I25.2 Old myocardial infarction; I48.0 Paroxysmal atrial fibrillation; I49.3 Ventricular premature depolarization; J40 Bronchitis, not specified as acute or chronic; K29.70 Gastritis, unspecified, without bleeding; K22.2 Esophageal obstruction; Z96.651 Presence of right artificial knee joint; Z20.828 Contact with and (suspected) exposure to other viral communicable diseases; X58.XXXA Exposure to other specified factors, initial encounter; Z79.84 Long term (current) use of oral hypoglycemic drugs; Z85.841 Personal history of malignant neoplasm of brain; Z86.011 Personal history of benign neoplasm of the brain; Y93.89 Activity, other specified; Y92.89 Other specified places as the place of occurrence of the external cause; Y99.8 Other external cause status; Z79.899 Other long term (current) drug therapy
CPT/HCPCS: 36415; 36600; 70553; 71045; 76937; 80048; 80053; 80185; 80305; 80320; 81003; 82040; 82375; 82550; 82805; 82962; 83036; 83605; 83735; 84100; 84134; 84145; 84443; 84478; 85025; 85044; 86850; 86900; 86920; 87070; 87077; 87186; 87426; 88305; 88331; 93005; 93306; 93971; 94002; 94003; 94640; 99291; A6261; A9577; C1713; C1725; C9113; J0153; J0282; J0330; J0690; J0692; J0696; J1100; J1170; J1815; J1940; J1953; J2060; J2250; J2270; J2405; J2543; J2704; J2765; J3010; J3480; J3490; J7040; J7050; J7060; J7120; Q2009; G0480